=== PATIENT | female | born 1960 | race Caucasian/White ===

== ENCOUNTER 2018-04-06 23:49 | Inpatient (IN) | payer OTHER ==
[~2018-04-06] VITALS: Ht 170.2 cm; Wt 88.5 kg
--- NOTE | 2018-04-06 23:57 | ED SYNCOPE COMPLAINT ---
History of Present Illness General Chief Complaint: Syncope and Near-Syncope Stated Complaint: PT C/O SYNCOPAL EPISODE "PASSED OUT" Vital Signs & Intake/Output Vital Signs & Intake/Output Vital Signs Date Time Temp Pulse Resp B/P B/P Pulse O2 O2 Flow FiO2 Mean Ox Delivery Rate 04/07 0012 Room Air 04/07 0006 98.0 56 20 152/87 100 Room Air Room Air Allergies Coded Allergies: No Known Allergies (04/07/18) Past History Travel History Traveled to [place] past 21 day No Psychosocial History What is your primary language Kiswahili Progress Plan of Care: Orders Procedure Date/time Status CT HEAD WO IV CONTRAST 04/[address] CERV SPINE WO IV CONTRAST 04/06 2357 Active XRY-PORTABLE CHEST XRAY 04/06 2353 Active Telemetry/Demonstrator Sales 04/06 2353 Active TROPONIN LEVEL 04/06 2353 Active COMPREHENSIVE METABOLIC PANEL 04/06 2353 Active CBC WITHOUT DIFFERENTIAL 04/06 2353 Active EKG 04/06 235 Active Initial ED EKG: sinus pause Departure Departure Disposition: STILL A PATIENT Condition: Stable Clinical Impression Primary Impression: Syncope Qualifiers: Syncope type: unspecified Qualified Code: R55 - Syncope and collapse Referrals: Amara GREENBERG,Tala (PCP/Family) Departure Forms: Customer Survey General Discharge Information
--- NOTE | 2018-04-07 00:06 | ED SYNCOPE COMPLAINT ---
History of Present Illness General Chief Complaint: Syncope and Near-Syncope Stated Complaint: PT C/O SYNCOPAL EPISODE "PASSED OUT" Source: patient Exam Limitations: no limitations Vital Signs & Intake/Output Vital Signs & Intake/Output Vital Signs Date Time Temp Pulse Resp B/P B/P Pulse O2 O2 Flow FiO2 Mean Ox Delivery Rate 04/07 0012 Room Air 04/07 0006 98.0 56 20 152/87 100 Room Air Room Air Allergies Coded Allergies: No Known Allergies (04/07/18) Triage Nurses Notes Reviewed? yes Timing: single episode today Precipitating Factors: PALPITATIONS Context: WALKING UP STAIRS PALPITATIONS PASSED OUT Episode Description: Walking upstairs developed palpitations woke up on the ground Loss of Consciousness: brief (seconds) LMP (ages 10-50): unknown : No Patient currently breastfeeds: No HPI: 57-year-old female with no past medical history presents for evaluation of a syncopal episode. Patient states that she was in her usual state of health when she was walking upstairs she suddenly developed palpitations and then had a syncopal episode where she woke up on the ground. States that she did hit her neck on the ground and has some neck pain but denies any head strike. She is unsure exactly what happened when she fell. She states that her found her in a "weird position". She denies any chest pain or shortness of breath no dizziness or lightheadedness. She states that she had a similar spell A year ago. (Anil Light) Past History Travel History Traveled to [place] past 21 day No Medical History Any Pertinent Medical History? see below for history Surgical History Surgical History: non-contributory Psychosocial History What is your primary language German Family History Hx Contributory? No (Anil Light) Review of Systems Review of Systems Constitutional: Reports: no symptoms. EENTM: Reports: no symptoms. Respiratory: Reports: no symptoms. Cardiovascular: Reports: see HPI, palpitations. GI: Reports: no symptoms. Genitourinary: Reports: no symptoms. Musculoskeletal: Reports: no symptoms. Skin: Reports: no symptoms. Neurological/Psychological: Reports: no symptoms. All Other Systems: Reviewed and Negative (Anil Light) Physical Exam Physical Exam General Appearance: well developed/nourished, no apparent distress, alert, awake Head: atraumatic, normal appearance Eyes: Bilateral: normal appearance, PERRL, EOMI. Ears, Nose, Throat: normal pharynx, normal ENT inspection, hearing grossly normal Neck: normal inspection, supple, tender lateral, no midline tenderness, NO BRIOTS, CERVICAL PARASPINAL MUSCLES TO PALPATION BILATERALLY NO MIDLINE TENDERNESS NO STEP-OFFS OR DEFORMITIES Respiratory: normal breath sounds, chest non-tender, no respiratory distress, lungs clear Cardiovascular: regular rate/rhythm, normal peripheral pulses, systolic murmur Gastrointestinal: normal bowel sounds, soft, non-tender, no organomegaly Back: normal inspection, normal range of motion Extremities: normal inspection, normal range of motion, no edema Psychiatric: awake, alert, oriented x 3 Cranial Nerves: normal hearing, normal speech, PERRL Coordination/Gait: normal finger to nose, normal gait Motor/Sensory: no motor/sensory deficits Skin: intact, normal color, warm/dry Lymphatic: no anterior cervical anel Core Measures ACS in differential dx? No CVA/TIA Diagnosis: No Sepsis Present: No Sepsis Focused Exam Completed? No (Adrian BORREGO,Anil) Progress Differential Diagnosis: AMI, aortic dissection, aortic valve, drug induced syncope, orthostatic syncope, other valvular disease, pulmonary embolus, seizure , sick sinus syndrome, subarachnoid hem., TIA/CVA, vasodepressor syncope, ventricular tach/fib Plan of Care: Orders Procedure Date/time Status Nothing by Mouth 04/07 B Active Patient Data 04/07 207 Active Saline Lock 04/07 204 Active ED Holding Orders 04/07 204 Active Admit to inpatient 04/07 204 Active Vital Signs 04/07 204 Active Code Status 04/07 0204 Active Add-on Test (ER Only) 04/07 0043 Active Intake & Output 04/07 0012 Active TSH REFLEX 04/07 7 Active TOTAL TRIODOTHYROXINE 04/07 7 Active PARTIAL THROMBOPLASTIN TIME 04/07 7 Complete PROTHROMBIN TIME 04/07 7 Complete MAGNESIUM 04/07 7 Active FREE T4 04/07 7 Active Telemetry/Turbine Operator 04/06 2353 Active TROPONIN LEVEL 04/06 2353 Active COMPREHENSIVE METABOLIC PANEL 04/06 2353 Active CBC WITHOUT DIFFERENTIAL 04/06 2353 Complete EKG 04/06 2352 Active Laboratory Tests 04/07/ 0007: Anion Gap 13, Estimated GFR > 60, BUN/Creatinine Ratio 18.6, Glucose 96, Calcium 9.6, Magnesium 1.9, Total Bilirubin 0.5, AST 35, ALT 33, Alkaline Phosphatase 50 , Troponin I < 0.01, Total Protein 7.1, Albumin 4.5, Globulin 2.6, Albumin/ Globulin Ratio 1.7, Free T4 1.02, Total T3 Pending, TSH &T3 &Free T4 Intrp 4.960 H, PT 11.0, INR 1.01, APTT 28, CBC w Diff NO MAN DIFF REQ, RBC 4.79, MCV 93.0, MCH 32.3 H, MCHC 34.7, RDW 13.4, MPV 9.6, Gran % 45.7, Lymphocytes % 46.7, Monocytes % 5.0, Eosinophils % 2.0, Basophils % 0.6, Absolute Granulocytes 2.7, Absolute Lymphocytes 2.7, Absolute Monocytes 0.3, Absolute Eosinophils 0.1, Absolute Basophils 0 PT IS HERE AFTER A syncopal episode. She was walking up the stairs when she developed palpitations and had a syncopal episode. Patient is unsure if she hit her head does report some neck pain. No chest pain or shortness of breath. On her initial EKG she shows a sinus pASUSE sinus arrest with atrial escape rhythm. SHE WILL REQUIRE ADMISSION. LABS CHEST X-RAY HEAD/CERVICAL SPINE CT ORDERED. PT SIGNED OUT TO DR PENALOZA PENDING ADMISSION/LABS Initial ED EKG: SINUS PAUSE/SINUS ARREST WITH ATRIAL ESCAPE Prior EKG: changed Hand-Off Endorsed To: Ca GREENBERG,Antolin eLy Endorsed Time: 0100 Pending: CT, labs (Anil Light) Diagnostic Imaging: Viewed by Me: Radiology Read, CT Scan. Discussed w/RAD: Radiology Read, CT Scan. Radiology Impression: PATIENT: GALLO DALEY PRESENT AGE: 57 PATIENT ACCOUNT NO: [id number] : 58 LOCATION: [facility] ORDERING PHYSICIAN: Anil BORREGO SERVICE DATE: 04/06/18 EXAM TYPE: CAT - CT CERV SPINE WO IV CONTRAST; CT HEAD WO IV CONTRAST EXAMINATIONS: CT HEAD WITHOUT CONTRAST AND CT CERVICAL SPINE WITHOUT CONTRAST CLINICAL INFORMATION: Trauma. Syncope. Pain. COMPARISON: None. TECHNIQUE: Contiguous helical images of the brain were obtained without IV contrast. Contiguous helical images of the cervical spine were obtained without IV contrast. Multiplanar reconstructions were performed. DLP: 617 mGy-cm. FINDINGS: There are no pathologic extra-axial fluid collections. The lateral, third, fourth ventricles are nondilated and concordant with the appearance of the sulci. There is no evidence for acute intraparenchymal hemorrhage or infarct. There is neither mass nor mass effect. There is no shift of midline structures. The paranasal sinuses and mastoid air cells are clear. There are no osseous lesions. There is a circular radiopaque foreign body within the region of the lateral right orbit. This appears to pass through the bone and is likely iatrogenic. There is a nondisplaced incomplete fracture through the right C7 superior facet. There is also a nondisplaced fracture through the right inferior facet of C6. As well, there is a fracture through the posterior lamina of C6 just proximal to the spinous process. The cervical vertebra are in normal alignment. Disc heights and vertebral heights are well-preserved. There is no prevertebral soft tissue swelling. There is no cervical lymphadenopathy. The visualized lung apices are clear. IMPRESSION: No evidence for acute intracranial injury. Right-sided C6 and C7 articular facet fractures as stated above as well as a fracture through the posterior medial lamina of C6 just proximal to the spinous process. The aforementioned was communicated to Dr. Penaloza at 0121 hours. DICTATED BY: Jorgito Weathers MD DATE /TIME DICTATED:04/07/18107 HEAD TELLER:ARGENIS DATE/TIME TRANSCRIBED: 04/07/18107 CONFIDENTIAL, DO NOT COPY WITHOUT APPROPRIATE AUTHORIZATION. < Electronically signed in Other Vendor System> SIGNED BY: Jorgito Weathers MD 04/07/18 0124 (Ca GREENBERG,Antolin Ley) Departure Departure Disposition: STILL A PATIENT Condition: Stable Referrals: Amara GREENBERG,Tala (PCP/Family) Departure Forms: Customer Survey General Discharge Information (Anil Light) Departure Clinical Impression Primary Impression: Sinus pause Secondary Impressions: Cervical spine fracture Syncope Qualifiers: Syncope type: unspecified Qualified Code: R55 - Syncope and collapse Comments 04/07/18, 2am... discussed with dr. kang (neurosurgery)... pt merits hard collar and conservative management, no need for surgery... she will follow up with neurosurgeon as outpatient. pt placed in hard collar. call placed to careers counsellor. Admission Note Spoke With: Gustabo Wells MD Documentation of Exam: Documentation of any treatments & extenuating circumstances including Concerns Regarding Discharge (functional status, medication knowledge or non-compliance, living conditions, etc.) that warrant an admission rather than observation: pt with significant sinus pause, resulting in syncope... merits serial trops/ monitoring, cards eval in AM. also, pt with c-spine fx... discussed with neurosurgery... pt merits hard collar , no need for surgery. (Ca GREENBERG,Antolin Ley) Critical Care Note Critical Care Note Critical Care Time: 30-74 min (Ca GREENBERG,Antolin Ley)
[2018-04-07 00:49] LABS: ABSOLUTE BASOPHIL COUNT 0 /CUMM (0.0-0.2); ABSOLUTE EOSINOPHIL COUNT 0.1 /CUMM (0.0-0.7); ABSOLUTE GRANULOCYTE CT 2.7 /CUMM (1.4-6.5); ABSOLUTE LYMPH COUNT 2.7 /CUMM (1.2-3.4); ABSOLUTE MONOCYTE COUNT 0.3 /CUMM (0.10-0.60); BASOPHIL % 0.6 % (0.0-2.0); GRANULOCYTE % 45.7 % (42.2-75.2); HEMATOCRIT 44.5 % (37-47); MEAN CORPUSCULAR HGB 32.3 PG (27.0-31.0); MEAN CORPUSCULAR HGB CONC 34.7 G/DL (33.0-37.0); MEAN PLATELET VOLUME 9.6 FL (7.4-10.4); PLATELET COUNT 157 /CUMM (130-400); RBC DISTRIBUTION WIDTH 13.4 % (11.5-14.5); RED BLOOD CELL CT 4.79 /CUMM (4.20-5.40); WHITE BLOOD CELL COUNT 5.9 /CUMM (4.8-10.8)
--- NOTE | 2018-04-07 01:12 | RADIOLOGY REPORT ---
EXAMINATION: CHEST 1 VIEW CLINICAL INFORMATION: Syncope. Pneumonia. COMPARISON: None. TECHNIQUE: An AP view of the chest is provided. FINDINGS: The cardiac silhouette is not enlarged. The mediastinal and hilar contours are unremarkable. There are neither pleural effusions nor pneumothoraces. There are no consolidations. The osseous structures are unremarkable. IMPRESSION: No evidence for acute disease.
--- NOTE | 2018-04-07 01:24 | CT SCAN REPORT ---
EXAMINATIONS: CT HEAD WITHOUT CONTRAST AND CT CERVICAL SPINE WITHOUT CONTRAST CLINICAL INFORMATION: Trauma. Syncope. Pain. COMPARISON: None. TECHNIQUE: Contiguous helical images of the brain were obtained without IV contrast. Contiguous helical images of the cervical spine were obtained without IV contrast. Multiplanar reconstructions were performed. DLP: 617 mGy-cm. FINDINGS: There are no pathologic extra-axial fluid collections. The lateral, third, fourth ventricles are nondilated and concordant with the appearance of the sulci. There is no evidence for acute intraparenchymal hemorrhage or infarct. There is neither mass nor mass effect. There is no shift of midline structures. The paranasal sinuses and mastoid air cells are clear. There are no osseous lesions. There is a circular radiopaque foreign body within the region of the lateral right orbit. This appears to pass through the bone and is likely iatrogenic. There is a nondisplaced incomplete fracture through the right C7 superior facet. There is also a nondisplaced fracture through the right inferior facet of C6. As well, there is a fracture through the posterior lamina of C6 just proximal to the spinous process. The cervical vertebra are in normal alignment. Disc heights and vertebral heights are well-preserved. There is no prevertebral soft tissue swelling. There is no cervical lymphadenopathy. The visualized lung apices are clear. IMPRESSION: No evidence for acute intracranial injury. Right-sided C6 and C7 articular facet fractures as stated above as well as a fracture through the posterior medial lamina of C6 just proximal to the spinous process. The aforementioned was communicated to Dr. Penaloza at 0121 hours.
[2018-04-07 01:34] LABS: PTT 28 SEC (25-37)
--- NOTE | 2018-04-07 02:15 | History & Physical ---
Delgado Burt 04/07/18 0213: General Information and HPI History of Present Illness: 68-year-old female with past medical history of mitral valve prolapse, osteoporosis came to the emergency department with chief complaint of syncope, according to the patient she was in her usual state of health last night when she came downstairs from her room for drinking water in her way back she started having racing heart, diaphoresis as well as headache than she got unconscious. The patient was found on the floor by her . He has same episode 2 years ago. She denies any jerking movement, bowel bladder incontinence, tongue bite, chest pain nausea or vomiting the patient is currently under investigation for syncope by her primary physician. She ordered a Holter monitoring and echo, reports are awaited. Patient having shortness but on strenous exercise like cycling for at least 1 hour daily she is not feeling any tiredness, dizziness or any kind of weakness. During episode of syncope she felt on the floor and there is C6, C7 cervical vertebra fracture. Allergies/Medications Allergies: Uncoded Allergies: ramirez butter (ITCHING, BURNING RASH 04/07/18) Home Med list Cholecalciferol (Vitamin D3) (Vitamin D) (Unknown Strength) TABLET (Unknown Dose) PO DAILY SUPPLEMENT (Reported) Fluticasone Propionate (Flonase Allergy Relief) 50 MCG/ACTUATION SPRAY.SUSP 1 SPRAY OSEAS PRN ALLERGIES (Reported) Past History Travel History Traveled to [place] past 21 day No Medical History Neurological: NONE EENT: NONE Cardiovascular: NONE Respiratory: NONE Gastrointestinal: NONE Hepatic: NONE Renal: NONE Musculoskeletal: NONE Psychiatric: NONE Endocrine: NONE Blood Disorders: NONE Cancer(s): NONE 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 The mediastinal and hilar contours are unremarkable. There are neither pleural effusions nor pneumothoraces. There are no consolidations. The osseous structures are unremarkable. Other Results IMPRESSION: No evidence for acute intracranial injury. Right-sided C6 and C7 articular facet fractures as stated above as well as a fracture through the posterior medial lamina of C6 just proximal to the spinous process. Assessment/Plan Assessment: Assessment and plan; #1 syncope; the patient had a syncopal episode this may be secondary due to the arterial fibrillations or tachycardia or any kind of arrhythmias which may be most probably provoked by mitral valve prolapse. I have called escalator attendant office for cardiac review today early in the morning. Also advise EKG and serial troponin level. * Vitals every shift 2D echo. * Patient is full code. * There is fracture of C6 and C7, neurosurgery was suggested and advised her neck collar for 4-6 weeks. * Diet-regular diet. * DVT prophylaxis-advised heparin but patient denied heparin. Core Measures/Misc (05/28) Acute Coronary Syndrome ACS Diagnosis: No Congestive Heart Failure Congestive Heart Failure Diagnosis No Cerebrovascular Accident CVA/TIA Diagnosis: No Sepsis (View protocol) Sepsis Present: No If YES complete Sepsis Event Note If YES complete Sepsis Event Note Resident Review Statement Resident Statement: discussed with summer internship Albina Garcia MD 04/07/18 0215: Assessment/Plan As Ranked By This Provider Problem List: 1. Syncope Qualifiers Syncope type: unspecified Qualified Code: R55 - Syncope and collapse Core Measures/Misc (05/28) Acute Coronary Syndrome ACS Diagnosis: No Congestive Heart Failure Congestive Heart Failure Diagnosis No Cerebrovascular Accident CVA/TIA Diagnosis: No VTE (View Protocol) VTE Risk Factors Age>40 No Mechanical VTE Prophylaxis d/t Other No VTE Pharm Prophylaxis d/t Other Sepsis (View protocol) Sepsis Present: No If YES complete Sepsis Event Note If YES complete Sepsis Event Note Resident Review Statement Other Findings: 58-year-old with history of mitral valve prolapse came to [facility] with an episode of syncopE. According the patient she was in usual state of health until last night, at around 11 PM she got down to get water in order way back to her bedroom she felt palpitation fortified diaphoresis and then found lying on the floor by her . Patient got similar kind of episode 2 years ago. Patient is currently being evaluated for pauses by her primary care physician. Patient got Holter monitoring done recently. She also got an echocardiogram. She does not know the results of both. Interestingly patient said that whenever she does cardio workout she feels better and the heart rate is high. Otherwise no chest pain, dizziness, weakness, abdominal pain, nausea, vomiting, headache. Patient takes multivitamins. admission vitals Temperature 98, pulse rate 56, respiratory rate 20, blood pressure 152/87 Labs WBC 5.9, hemoglobin 15.4, platelet count 157, INR 1.01, troponin 0 0.01 ED imaging Chest x-ray No evidence for acute disease. Cervical spine CT/head CT No evidence for acute intracranial injury. Right-sided C6 and C7 articular facet fractures as stated above as well as a fracture through the posterior medial lamina of C6 just proximal to the spinous process ED treatment IV Tylenol On examination patient lying with her hard collar on her neck. She complains of neck pain a 5 x 10 in severity CVS-S1-S2 irregular RS-normal vesicular breath sounds Abdomen-soft INVENTORY CONTROL/SHIPPING RECEIVING-3-12 cranial nerves intact Assessment and plan 1. Syncope-this can be secondary due to atrial fibrillation-tachybradycardia syndrome. Cardiology consult Serial troponin and EKG Vitals every shift 2D echocardiogram Code-full code C6-C7 fracture-ED course neurosurgery was suggested heart collar for 4-6 weeks. Diet-regular diet DVT prophylaxis-heparin subcu Priscilla GREENBERGOsceola 04/07/18 9912: General Information and HPI Statement: I have seen and personally examined GALLO DALEY and documented this H&P. The patient is a 57 year old F who presented with a patient stated chief complaint of [syncope]. Source of Information: patient Exam Limitations: no limitations Past History Medical History EENT: cataracts Cardiovascular: mitral prolapse Endocrine: osteoporosis Past Family/Social History Psychosocial History Where do you live? Home Who Do You Live With? 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 Exam & Diagnostic Data Last 24 Hrs of Vital Signs/I&O Vital Signs Date Time Temp Pulse Resp B/P B/P Pulse O2 O2 Flow FiO2 Mean Ox Delivery Rate 04/07 0345 98.1 64 18 141/69 98 Room Air 04/07 0012 Room Air 04/07 0006 98.0 56 20 152/87 100 Room Air Room Air Intake & Output 04/07 0800 04/07 0000 04/06 1600 Intake Total 0 Output Total Balance 0 Intake, Oral 0 Patient 133 lb Weight Physical Exam General Appearance Alert, Oriented X3, Cooperative, No Acute Distress Skin No Rashes, No Breakdown HEENT Atraumatic, PERRLA, EOMI Neck Supple, in a stiff collar Lymphatic Axillary nl, Cervical nl Cardiovascular Regular Rate, mid systolic click Lungs Clear to Auscultation, Normal Air Movement Abdomen Normal Bowel Sounds, Soft, No Tenderness Last 24 Hrs of Labs/James: Laboratory Tests 04/07/18 0007: Anion Gap 13, Estimated GFR > 60, BUN/Creatinine Ratio 18.6, Glucose 96, Calcium 9.6, Magnesium 1.9, Total Bilirubin 0.5, AST 35, ALT 33, Alkaline Phosphatase 50 , Troponin I < 0.01, Total Protein 7.1, Albumin 4.5, Globulin 2.6, Albumin/ Globulin Ratio 1.7, Free T4 1.02, Total T3 1.08, TSH &T3 &Free T4 Intrp 4.960 H , PT 11.0, INR 1.01, APTT 28, CBC w Diff NO MAN DIFF REQ, RBC 4.79, MCV 93.0, MCH 32.3 H, MCHC 34.7, RDW 13.4, MPV 9.6, Gran % 45.7, Lymphocytes % 46.7, Monocytes % 5.0, Eosinophils % 2.0, Basophils % 0.6, Absolute Granulocytes 2.7, Absolute Lymphocytes 2.7, Absolute Monocytes 0.3, Absolute Eosinophils 0.1, Absolute Basophils 0 Diagnostic Data EKG Results Sinus pause with atrial escape Core Measures/Misc (05/28) Sepsis (View protocol) If YES complete Sepsis Event Note If YES complete Sepsis Event Note Attending MD Review Statement Attending Statement Attending MD Statement: examined this patient, discuss w/resident/PA/DANCE TEACHER, agreed w/resident/PA/DANCE TEACHER, amended to note Attending Assessment/Plan: This patient is a 58-year-old female with a significant past medical history for mitral valve prolapse who came to [facility] with an episode of syncope. The patient was in her usual state of health until the evening prior to admission, at around 11 PM she got down to get water in on her way back to her bedroom she felt palpitation, diaphoresis and then was found lying on the floor by her . The patient has had several similar episodes. She is currently being evaluated for pauses by her primary care physician with a Holter monitoring performed (awaiting results) and an echocardiogram (results are not available at this visit). While in the emergency department her vitals were stable, troponin was negative, chest x-ray showed no acute disease however a cervical CT spine demonstrated a right-sided C6-C7 articular facet fracture. Neurosurgery was contacted and recommended a hard collar for 4-6 weeks. Most importantly her EKG demonstrated a significant sinus pause with atrial escape. The patient will need to be evaluated by cardiology in the morning for possible pacemaker placement. EKG Results Sinus pause with atrial escape Core Measures/Misc (05/28) Sepsis (View protocol) If YES complete Sepsis Event Note If YES complete Sepsis Event Note Attending MD Review Statement Attending Statement Attending MD Statement: examined this patient, discuss w/resident/PA/DANCE TEACHER, agreed w/resident/PA/DANCE TEACHER, amended to note Attending Assessment/Plan: This patient is a 58-year-old female with a significant past medical history for mitral valve prolapse who came to [facility] with an episode of syncope. The patient was in her usual state of health until the evening prior to admission, at around 11 PM she got down to get water in on her way back to her bedroom she felt palpitation, diaphoresis and then was found lying on the floor by her . The patient has had several similar episodes. She is currently being evaluated for pauses by her primary care physician with a Holter monitoring performed (awaiting results) and an echocardiogram (results are not available at this visit). While in the emergency department her vitals were stable, troponin was negative, chest x-ray showed no acute disease however a cervical CT spine demonstrated a right-sided C6-C7 articular facet fracture. Neurosurgery was contacted and recommended a hard collar for 4-6 weeks. Most importantly her EKG demonstrated a significant sinus pause with atrial escape. The patient will need to be evaluated by cardiology in the morning for possible pacemaker placement.
[2018-04-07] MEDS ORDERED: FLONASE ALLERG9.9 ML NAS (09:46)
[2018-04-07] MEDS ORDERED: VITAMIN D2000 UNI1 PO (09:46)
--- NOTE | 2018-04-07 10:38 | Cons- Cardiology ---
General Information and HPI Consulting Request Date of Consult: 04/07/18 Requested By: Gustabo Wells MD Reason for Consult: Syncope Source of Information: patient History of Present Illness: This is a pleasant 57-year-old female with a past medical history of mitral valve prolapse and osteoporosis who presents to [facility] with a chief complaint of syncope. The patient was in her usual state of health when she was walking get some water and developed acute palpitations along with diaphoresis and then had a short episode of loss of consciousness; she was told by her that lasted approximately 1 minute. No reported bowel or bladder incontinence. No witnessed seizure activity. She has had multiple episodes of intermittent palpitations with no obvious exacerbating or alleviating factors; she tells me she recently underwent an outpatient echocardiogram and Holter monitor and was going to be referred to a package delivery driver. When she awoke after this episode she had significant neck pain and was found to have cervical fracture. She is now in a hard cervical collar. She denies any significant exertional symptoms; no chest pain, slurring of speech, orthopnea, or paroxysmal nocturnal dyspnea. She is quite active at baseline. Despite having multiple episodes of intermittent palpitations that she tells me she is only syncopized once in the past approximately 2 years ago. Allergies/Medications Allergies: Uncoded Allergies: ashley butter (ITCHING, BURNING RASH 04/07/18) Home Med List: Cholecalciferol (Vitamin D3) (Vitamin D) (Unknown Strength) TABLET (Unknown Dose) PO DAILY SUPPLEMENT (Reported) Fluticasone Propionate (Flonase Allergy Relief) 50 MCG/ACTUATION SPRAY.SUSP 1 SPRAY OSEAS PRN ALLERGIES (Reported) Current Medications: Current Medications Sig/Gilma Start time Last Medication Dose Route Stop Time Status Admin Acetaminophen 0 .STK-MED ONE 04/07 0611 DC PO Acetaminophen 650 MG Q6P PRN 04/07 06 AC 04/07 PO 0615 Acetaminophen 1,000 MG ONCE ONE 04/07 0145 DC 04/07 N/A 1 UNIT IV 04/07 0159 0139 Acetaminophen 0 .STK-MED ONE 04/07 0138 DC IV Heparin Sodium 0 .STK-MED ONE 04/07 0605 DC (Porcine) .ROUTE Heparin Sodium 5,000 UNIT Q8 04/07 06 AC (Porcine) SC Morphine Sulfate 2 MG Q4P PRN 07/28 0600 AC IV Oxycodone/ 1 TAB Q6P PRN 04/07 0600 AC Acetaminophen PO Review of Systems Review of Systems: Review of systems as per HPI. The remainder of a 10 point review of systems was reviewed and was otherwise negative. 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 Home Who Do You Live With? 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 Alert. Cervical collar in place Eyes: No obvious scleral icterus. HEENT: No jugular venous distention or abnormal jugular venous pulsations. Cardiovascular: Normal intensity S1/S2. PMI not grossly displaced. Respiratory: Lungs clear to auscultation bilaterally. Abdomen: Soft, nontender with no guarding or rebound tenderness. Musculoskeletal: No clubbing or cyanosis noted Skin: warm Neurologic: No gross focal deficits noted. Lymph: No gross lymphadenopathy. Labs/James Results: Laboratory Tests 04/07 04/07 0725 0007 Chemistry Sodium (137 - 145 mmol/L) 140 Potassium (3.5 - 5.1 mmol/L) 3.9 Chloride (98 - 107 mmol/L) 103 Carbon Dioxide (22 - 30 mmol/L) 25 Anion Gap (5 - 16) 13 BUN (7 - 17 mg/dL) 13 Creatinine (0.5 - 1.0 mg/dL) 0.7 Estimated GFR (>60 ml/min) > 60 BUN/Creatinine Ratio (7 - 25 %) 18.6 Glucose (65 - 99 mg/dL) 96 Calcium (8.4 - 10.2 mg/dL) 9.6 Magnesium (1.6 - 2.3 mg/dL) 1.9 Total Bilirubin (0.2 - 1.3 mg/dL) 0.5 AST (14 - 36 U/L) 35 ALT (9 - 52 U/L) 33 Alkaline Phosphatase (<127 U/L) 50 Troponin I (< 0.11 ng/ml) < 0.01 < 0.01 Total Protein (6.3 - 8.2 g/dL) 7.1 Albumin (3.5 - 5.0 g/dL) 4.5 Globulin (1.9 - 4.2 gm/dL) 2.6 Albumin/Globulin Ratio (1.1 - 2.2 %) 1.7 Free T4 (0.64 - 1.79 ng/dL) 1.02 Total T3 (0.97 - 1.69 ng/mL) 1.08 TSH &T3 &Free T4 Intrp (0.270 - 4.20 uIU/mL) 4.960 H Coagulation PT (9.4 - 12.5 SEC) 11.0 INR (0.90 - 1.19) 1.01 APTT (25 - 37 SEC) 28 Hematology CBC w Diff NO MAN DIFF REQ WBC (4.8 - 10.8 /CUMM) 5.9 RBC (4.20 - 5.40 /CUMM) 4.79 Hgb (12.0 - 16.0 G/DL) 15.4 Hct (37 - 47 %) 44.5 MCV (81.0 - 99.0 FL) 93.0 MCH (27.0 - 31.0 PG) 32.3 H MCHC (33.0 - 37.0 G/DL) 34.7 RDW (11.5 - 14.5 %) 13.4 Plt Count (130 - 400 /CUMM) 157 MPV (7.4 - 10.4 FL) 9.6 Gran % (42.2 - 75.2 %) 45.7 Lymphocytes % (20.5 - 51.1 %) 46.7 Monocytes % (1.7 - 9.3 %) 5.0 Eosinophils % (0 - 5 %) 2.0 Basophils % (0.0 - 2.0 %) 0.6 Absolute Granulocytes (1.4 - 6.5 /CUMM) 2.7 Absolute Lymphocytes (1.2 - 3.4 /CUMM) 2.7 Absolute Monocytes (0.10 - 0.60 /CUMM) 0.3 Absolute Eosinophils (0.0 - 0.7 /CUMM) 0.1 Absolute Basophils (0.0 - 0.2 /CUMM) 0 Diagnostic Data EKG Results Tracing was personally reviewed and shows sinus rhythm with sinus pause and a narrow QRS complex CXR Results No evidence for acute disease. Other Results Telemetry tracings were personally reviewed and shows sinus rhythm CT No evidence for acute intracranial injury. Right-sided C6 and C7 articular facet fractures as stated above as well as a fracture through the posterior medial lamina of C6 just proximal to the spinous process. Assessment/Plan Assessment/Plan 1. Recurrent palpitations 2. Recurrent syncope 3. Cervical fracture 4. Reported history of mitral prolapse 5. Sinus pause on EKG The patient's recurrent symptoms are suspicious for a cardiac etiology; while she did have a sinus pause on EKG, telemetry thus far has been unrevealing. I am not entirely sure that her symptoms are due to bradycardia arrhythmia as they seem to start with acute onset palpitations and may in fact be due to a tachyarrhythmia; will need to obtain the results of her recent outpatient Holter monitor and echocardiogram. Management of her cervical fracture per neurosurgery. I suspect she may be a candidate for EP study. She should remain on continuous telemetry without interruption. Ariel Garza MD [facility] Consult Acknowledgment - Thank you for your consult request.
[2018-04-07 18:09] VITALS: BP 122/82
[2018-04-07 22:30] VITALS: BP 122/60
[2018-04-08 06:59] VITALS: BP 126/72
--- NOTE | 2018-04-08 09:49 | PN- Housestaff ---
Subjective Follow-up For: syncope Right-sided C6 and C7 articular facet fractures Subjective: No acute overnight events. no complaints. Review of Systems Constitutional: Denies: chills, malaise, weakness. EENTM: Reports: no symptoms. Cardiovascular: Reports: no symptoms. Respiratory: Denies: short of breath. Gastrointestinal: Reports: no symptoms. Genitourinary: Reports: no symptoms. Musculoskeletal: Reports: no symptoms. Objective Last 24 Hrs of Vital Signs/I&O Vital Signs Date Time Temp Pulse Resp B/P B/P Pulse O2 O2 Flow FiO2 Mean Ox Delivery Rate 04/08 1410 98.5 62 18 118/68 97 Room Air 04/08 0659 98.3 54 20 126/72 97 Room Air 04/07 2230 98.0 66 18 122/60 99 Room Air Intake & Output 04/08 1600 04/08 0800 04/08 0000 Intake Total 800 480 480 Output Total Balance 800 480 480 Intake, Oral 800 480 480 Physical Exam General Appearance: Alert, Oriented X3, Cooperative Skin: No Significant Lesion HEENT: Atraumatic, PERRLA, EOMI Neck: Supple, on cervical collar Cardiovascular: Regular Rate, Normal S1, Normal S2, No Murmurs Lungs: Normal Air Movement Abdomen: Soft Extremities: No Clubbing Assessment/Plan Assessment: ASSESSMENT: This is a 58-year-old with PMH of mitral valve prolapse came to [facility] with CC palpitations, diaphoresis and syncope. A Cervical spine CT/head CT in ED showed Right-sided C6 and C7 articular facet fractures as well as a fracture through the posterior medial lamina of C6 just proximal to the spinous process PLAN: 1. Syncope: Given palpitations, there is c/o cardiac etiology of syncope. Overnight tele events showed hr 54-55. * Appreciate Cardiology consult * Serial troponin and EKG x3 nml * Vitals every shift * 2D echocardiogram * TSH 4.96 * Con't tele monitor 2. C6-C7 fracture * neurosurgery was suggested heart collar for 4-6 weeks. FC Diet-regular diet DVT prophylaxis-heparin subcu Problem List: 1. Cervical spine fracture 2. Syncope Pain Ratin Pain Location: NONE Pain Goal: Remain pain free Pain Plan: NONE Tomorrow's Labs & Rationales: CBC BEP
--- NOTE | 2018-04-08 12:01 | PN- Cardiology ---
Subjective Subjective: No chest pain or dyspnea. She has had some intermittent "fluttering" sensation while here in the hospital which are similar to her previously described episodes. No recurrent syncope while here in the hospital. Objective Vital Signs and I&Os Vital Signs Date Time Temp Pulse Resp B/P B/P Pulse O2 O2 Flow FiO2 Mean Ox Delivery Rate 04/08 0659 98.3 54 20 126/72 97 Room Air 04/07 2230 98.0 66 18 122/60 99 Room Air 04/07 1809 97.9 56 18 122/82 99 Room Air 04/07 1501 98.2 65 18 137/77 98 Room Air Room Air Intake & Output 04/08 1600 04/08 0804/08 0000 04/07 1600 04/07 0800 04/07 0000 Intake Total 480 480 0 Output Total Balance 480 480 0 Intake, Oral 480 480 0 Patient 133 lb 133 lb Weight Weight Reported by Patient Measurement Method Physical Exam: General: no apparent distress. Alert. Cervical collar in place Eyes: No obvious scleral icterus. HEENT: No jugular venous distention or abnormal jugular venous pulsations. Cardiovascular: Normal intensity S1/S2. PMI not grossly displaced. Respiratory: Lungs clear to auscultation bilaterally. Abdomen: Soft, nontender with no guarding or rebound tenderness. Musculoskeletal: No clubbing or cyanosis noted Skin: warm Neurologic: No gross focal deficits noted. Lymph: No gross lymphadenopathy. Current Medications: Current Medications Sig/Gilma Start time Last Medication Dose Route Stop Time Status Admin Acetaminophen 0 .STK-MED ONE 04/07 1233 DC PO Acetaminophen 650 MG Q6P PRN 04/07 06 AC 04/08 PO 0527 Heparin Sodium 5,000 UNIT Q8 04/07 0600 AC 04/08 (Porcine) SC 0527 Ketorolac 15 MG ONCE ONE 04/08 1130 DC 04/08 Tromethamine IV 04/08 1131 1147 Ketorolac 15 MG .STK-MED ONE 04/07 2311 DC Tromethamine IM 04/07 231 Ketorolac 15 MG ONCE ONE 04/070 DC 04/07 Tromethamine IV 04/07 2231 231 Morphine Sulfate 2 MG Q4P PRN 04/07 06 AC IV Oxycodone/ 1 TAB Q6P PRN 04/07 06 AC Acetaminophen PO Results Last 48 Hrs of Labs/Mics: Laboratory Tests 04/07/18 1214: Troponin I < 0.01 04/07/18 0725: Troponin I < 0.01 04/07/18 0007: Anion Gap 13, Estimated GFR > 60, BUN/Creatinine Ratio 18.6, Glucose 96, Calcium 9.6, Magnesium 1.9, Total Bilirubin 0.5, AST 35, ALT 33, Alkaline Phosphatase 50 , Troponin I < 0.01, Total Protein 7.1, Albumin 4.5, Globulin 2.6, Albumin/ Globulin Ratio 1.7, Free T4 1.02, Total T3 1.08, TSH &T3 &Free T4 Intrp 4.960 H , PT 11.0, INR 1.01, APTT 28, CBC w Diff NO MAN DIFF REQ, RBC 4.79, MCV 93.0, MCH 32.3 H, MCHC 34.7, RDW 13.4, MPV 9.6, Gran % 45.7, Lymphocytes % 46.7, Monocytes % 5.0, Eosinophils % 2.0, Basophils % 0.6, Absolute Granulocytes 2.7, Absolute Lymphocytes 2.7, Absolute Monocytes 0.3, Absolute Eosinophils 0.1, Absolute Basophils 0 Recent Imaging Studies: Telemetry tracings are personally reviewed and shows sinus rhythm and sinus bradycardia with intermittent short sinus pauses Assessment/Plan Assessment/Plan 1. Recurrent palpitations 2. Recurrent syncope 3. Cervical fracture 4. Reported history of mitral prolapse 5. Sinus pause on EKG/telemetry She has had some intermittent "fluttering" sensation while here in the hospital which are similar to her previously described episodes. No recurrent syncope while here in the hospital. No evidence of tachyarrhythmias on telemetry despite her intermittent symptoms. Does continue to have intermittent sinus pauses on telemetry. Obtain the recent outpatient Holter monitor and echocardiogram. Management of her cervical fracture per neurosurgery. She should remain on continuous telemetry without interruption. Would keep her n.p.o. after midnight for possible permanent pacemaker tomorrow. Ariel aGrza MD [facility] Continue telemetry? Yes
[2018-04-08 14:10] VITALS: BP 118/68
[2018-04-08 22:01] VITALS: BP 132/74
--- NOTE | 2018-04-09 07:00 | PN- Housestaff ---
Amanda Haynes 04/09/18 0700: Subjective Follow-up For: Syncope Cervical Neck Fracture Tele-Events Since Last Visit: sb, 58 Review of Systems Constitutional: Denies: see HPI. Objective Last 24 Hrs of Vital Signs/I&O Vital Signs Date Time Temp Pulse Resp B/P B/P Pulse O2 O2 Flow FiO2 Mean Ox Delivery Rate 04/08 2201 97.4 61 18 132/74 97 04/08 1410 98.5 62 18 118/68 97 Room Air Intake & Output 04/09 1600 04/09 0800 04/09 0000 Intake Total 200 Output Total Balance 200 Intake, Oral 200 Physical Exam General Appearance: Alert, Oriented X3, Cooperative Neck: cervical collar applied Cardiovascular: Normal S1, Normal S2, bradycardia Lungs: Clear to Auscultation, Normal Air Movement Abdomen: Normal Bowel Sounds, Soft, No Tenderness Neurological: Normal Speech, Strength at 5/5 X4 Ext, Normal Tone, Sensation Intact Extremities: No Clubbing, No Cyanosis, No Edema Vascular: Normal Pulses, Pulses Symmetrical Current Medications: Current Medications Sig/Gilma Start time Last Medication Dose Route Stop Time Status Admin Acetaminophen 650 MG .STK-MED ONE 04/08 1942 DC PO 04/08 194 Acetaminophen 650 MG Q6P PRN 04/07 06 AC 04/09 PO 0432 Heparin Sodium 5,000 UNIT Q8 04/07 06 AC 04/09 (Porcine) SC 0538 Ketorolac 15 MG ONCE ONE 04/08 1130 DC 04/08 Tromethamine IV 04/08 1131 1147 Morphine Sulfate 2 MG Q4P PRN 04/07 06 AC IV Oxycodone/ 1 TAB Q6P PRN 04/07 06 AC Acetaminophen PO Scopolamine HBr 0 .STK-MED ONE 04/09 1024 DC TOP Last 24 Hrs of Lab/James Results Last 24 Hrs of Labs/Mics: Laboratory Tests 04/09/18 0703: Anion Gap 10, Estimated GFR > 60, BUN/Creatinine Ratio 17.1, CBC w Diff NO MAN DIFF REQ, RBC 5.04, MCV 94.5, MCH 31.8 H, MCHC 33.6, RDW 13.0, MPV 9.7, Gran % 60.8, Lymphocytes % 29.9, Monocytes % 7.0, Eosinophils % 1.7, Basophils % 0.6, Absolute Granulocytes 3.2, Absolute Lymphocytes 1.6, Absolute Monocytes 0.4, Absolute Eosinophils 0.1, Absolute Basophils 0 Orders ECHO Findings: Normal global left ventricular size, wall thickness, systolic function with no obvious regional wall motion abnormalities. Normal left ventricular ejection fraction estimated at 60-65%. Assessment/Plan Assessment: Patient is a 57-year-old female with past medical history of mitral valve prolapse came to [facility] with complaints of chronic palpitations and an episode of syncope at home. Patient claimed to have a short episode of loss consciousness with diaphoresis. Event lasted approximately 1 minute as per . Patient has multiple episodes of intermittent palpitations in the past but no obvious exacerbating or relieving factors. Recently underwent outpatient echo and Holter monitor and it was planned to be referred to a crystal syrup maker. In addition patient found to have cervical fractures of C6 and C7. Patient placed on hard cervical collar in the ER. Problem list: 1. Recurrent palpitations/syncope 2. Cervical fracture 3. Reported history of mitral valve prolapse 4. Sinus pause on EKG Recurrent palpitations or syncope * Patient has had multiple episodes of pauses up to 3 seconds in sinus bradycardia and 30s while on treatment telemetry * Patient n.p.o. today for current pacemaker placement. * Hard collar in place for C6-C7 fracture, neurosurgery consulted proper fitting of cervical, Cervical fracture of C6-C7 * Neurosurgery suggested hard collar for 4-6 weeks * Contacted today for proper fitting of cervical collar CODE STATUS: Full code Diet: Regular diet DVT prophylaxis: Heparin SC Problem List: 1. Syncope 2. Sinus pause 3. Cervical spine fracture Pain Ratin Pain Location: Neck Pain Goal: Pain 4 or less Pain Plan: as per pain pathway Tomorrow's Labs & Rationales: cbc bep DVT/Prophylaxis: mechanical, pharmacological Adri Mena MD 04/09/18 1253: Attending MD Review Statement Attending Statement Attending MD Statement: examined this patient, discuss w/resident/PA/FIRER LOCOMOTIVE CRANE, agreed w/resident/PA/FIRER LOCOMOTIVE CRANE, reviewed EMR data (avail), discussed with nursing, discussed with case mgmt, reviewed images Attending Assessment/Plan: 57-year-old female past medical history of mitral valve prolapse was here with syncope and found to have symptomatic bradycardia with pauses of up to 2-3 seconds. She also has a C6-C7 fracture and has a collar. She is nothing by mouth for pacemaker today and will call a formal neurosurgery consult as the collar doesn't appear to be fitted on right.
--- NOTE | 2018-04-09 07:35 | ECHOCARDIOGRAM REPORT ---
GALLO DALEY Age: 57 : 1960 Gender: F Exam Date: 04/08/2018 10:09 Exam Location: 1 [address] Ht (in): 67 Wt (lb): 133 BSA: 1.69 BP: 126 / 72 Ordering Physician: CARL GREENBERG,INTERVALE Referring Physician: Antwan Garza M.D. Technologist: Amaris Santo [facility] Room Number: [id number] Indications: Palpitations Rhythm: Sinus Technical Quality: fair FINDINGS Left Ventricle Normal global left ventricular size, wall thickness, systolic function with no obvious regional wall motion abnormalities. Normal left ventricular ejection fraction estimated at 60-65%. Right Ventricle Normal right ventricular size and function. Right Atrium Normal right atrial size. Left Atrium Normal left atrial size. Mitral Valve Mitral valve normal in structure and function. Mild mitral regurgitation. Aortic Valve Structurally normal trileaflet aortic valve. Trace to mild aortic regurgitation. Tricuspid Valve Tricuspid valve is normal in structure and function. Trace to mild tricuspid regurgitation. Pulmonic Valve Pulmonic valve not well visualized, grossly normal. Pericardium No pericardial effusion. Great Vessels Normal size aortic root. CONCLUSIONS Normal left and right ventricular systolic function. No significant valvular abnormalities noted. Lei Mena M.D. (Electronically Signed) Final Date: 09 April 2018 07:32 MEASUREMENTS (Male / Female) Normal Values 2D ECHO LV Diastolic Diameter PLAX 3.6 cm 4.2 - 5.9 / 3.9 - 5.3 cm LV Systolic Diameter PLAX 2.5 cm 2.1 - 4.0 cm LV Fractional Shortening PLAX 30.6 % 25 - 46 % LV Ejection Fraction 2D Teich 59.0 % IVS Diastolic Thickness 0.8 cm LVPW Diastolic Thickness 0.9 cm LV Relative Wall Thickness 0.5 RV Internal Dim ED PLAX 2.0 cm 1.9 - 3.8 cm LVOT Diameter 2.0 cm Aortic Root Diameter 2.4 cm LA Systolic Diameter LX 3.0 cm 3.0 - 4.0 / 2.7 - 3.8 cm LA Volume 28.0 cm 18 - 58 / 22 - 52 cm Ascending Aorta Diameter 2.6 cm DOPPLER AV Peak Velocity 113.0 cm/s AV Peak Gradient 5.1 mmHg AV Mean Velocity 75.8 cm/s AV Mean Gradient 3.0 mmHg AV Velocity Time Integral 29.3 cm LVOT Peak Velocity 74.4 cm/s LVOT Peak Gradient 2.2 mmHg LVOT Mean Velocity 48.7 cm/s LVOT Mean Gradient 1.0 mmHg LVOT Velocity Time Integral 20.4 cm LVOT Stroke Volume 64.1 cm AV Area Cont Eq vti 2.2 cm AV Area Cont Eq pk 2.1 cm MV Peak Velocity 113.0 cm/s MV Peak Gradient 5.1 mmHg MV Mean Velocity 48.3 cm/s MV Mean Gradient 1.0 mmHg Mitral E Point Velocity 67.6 cm/s Mitral A Point Velocity 42.0 cm/s Mitral E to A Ratio 1.6 MV PHT Velocity 115.0 cm/s MV Deceleration Martin 479.0 cm/s MV Pressure Half Time 72.0 ms MV Area PHT 3.1 cm MV Deceleration Time 194.0 ms TR Peak Velocity 81.7 cm/s TR Peak Gradient 2.7 mmHg Right Atrial Pressure 5.0 mmHg Pulmonary Artery Systolic Pressure 7.7 mmHg Right Ventricular Systolic Pressure 7.7 mmHg PV Peak Velocity 80.2 cm/s PV Peak Gradient 2.6 mmHg PV Mean Velocity 58.6 cm/s PV Mean Gradient 2.0 mmHg PV Velocity Time Integral 16.7 cm LV E' Lateral Velocity 14.9 cm/s Mitral E to LV E' Lateral Ratio 4.5 LV E' Septal Velocity 9.5 cm/s Mitral E to LV E' Septal Ratio 7.1
[2018-04-09 08:02] LABS: ABSOLUTE BASOPHIL COUNT 0 /CUMM (0.0-0.2); ABSOLUTE EOSINOPHIL COUNT 0.1 /CUMM (0.0-0.7); ABSOLUTE GRANULOCYTE CT 3.2 /CUMM (1.4-6.5); ABSOLUTE LYMPH COUNT 1.6 /CUMM (1.2-3.4); ABSOLUTE MONOCYTE COUNT 0.4 /CUMM (0.10-0.60); BASOPHIL % 0.6 % (0.0-2.0); EOSINOPHIL % 1.7 % (0-5); GRANULOCYTE % 60.8 % (42.2-75.2); HEMATOCRIT 47.6 % (37-47); MEAN CORPUSCULAR HGB 31.8 PG (27.0-31.0); MEAN CORPUSCULAR HGB CONC 33.6 G/DL (33.0-37.0); MEAN CORPUSCULAR VOLUME 94.5 FL (81.0-99.0); MEAN PLATELET VOLUME 9.7 FL (7.4-10.4); PLATELET COUNT 141 /CUMM (130-400); RED BLOOD CELL CT 5.04 /CUMM (4.20-5.40); WHITE BLOOD CELL COUNT 5.2 /CUMM (4.8-10.8)
--- NOTE | 2018-04-09 08:33 | PN- Student ---
Subjective Subjective: Pt was seen and examined this morning and reports no acute events overnight. She reports continued discomfort due to her collar and remaining inactive in bed. She has decreased neck pain compared to yesterday which she describes as a dull ache and increased R shoulder pain which is achy. Pt indicates that she has decreased dizziness and palpitations today compared to yesterday. She denies chest pain, SOB, diaphoresis, and weakness. Pt gave a more thorough medical history compared to previously. PMH - Osteoporosis - she took fosamax for 1 yr but discontinued 10 months ago - BPPV - has had dizziness, does not lay flat - mitral valve prolapse - asymptomatic - cataracts PSHx - L rotator cuff repair - R rotator cuff repair - L knee repair x 2 - Repair of R zygomatic arch and orbit secondary to trauma (childhood) Social Hx Pt is and has 2 grown children. 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 She enjoys kayaking and hiking. Objective Objective: Vital Signs Result Date Time Pulse Ox 97 04/08 2201 B/P 132/74 04/08 2201 Temp 97.4 04/08 220 Pulse 61 04/08 2201 Resp 18 04/08 2201 O2 Delivery Room Air 04/08 1410 O2 Flow Rate Room Air 04/07 1501 Intake & Output 04/09 0000 04/08 1600 04/08 0800 Intake Total 200 800 480 Output Total Balance 200 800 480 Intake, Oral 200 800 480 Tele: Sibus marco a, rate in 50s, pauses intermittently PE: Gen - NAD, resting with cervical collar in place Psych - appropriately anxious regarding upcoming surgery Neuro - AOx4 CV - bradycardia, S1 and S2 crisp with quiet opening snap at the L5th interspace in the midclavicular line, some premature beats appreciated but infrequent Pulm - CTA BL Abd - soft, nontender, nondistended Ext - warm and well perfused, R shoulder with limited motion and 4/5 strenght, L arm and legs BL WNL Results Results: Laboratory Tests 04/09/18 0703: Anion Gap 10, Estimated GFR > 60, BUN/Creatinine Ratio 17.1, CBC w Diff NO MAN DIFF REQ, RBC 5.04, MCV 94.5, MCH 31.8 H, MCHC 33.6, RDW 13.0, MPV 9.7, Gran % 60.8, Lymphocytes % 29.9, Monocytes % 7.0, Eosinophils % 1.7, Basophils % 0.6, Absolute Granulocytes 3.2, Absolute Lymphocytes 1.6, Absolute Monocytes 0.4, Absolute Eosinophils 0.1, Absolute Basophils 0 04/07/18 1214: Troponin I < 0.01 04/07/18 0725: Troponin I < 0.01 04/07/18 0007: Anion Gap 13, Estimated GFR > 60, BUN/Creatinine Ratio 18.6, Glucose 96, Calcium 9.6, Magnesium 1.9, Total Bilirubin 0.5, AST 35, ALT 33, Alkaline Phosphatase 50 , Troponin I < 0.01, Total Protein 7.1, Albumin 4.5, Globulin 2.6, Albumin/ Globulin Ratio 1.7, Free T4 1.02, Total T3 1.08, TSH &T3 &Free T4 Intrp 4.960 H , PT 11.0, INR 1.01, APTT 28, CBC w Diff NO MAN DIFF REQ, RBC 4.79, MCV 93.0, MCH 32.3 H, MCHC 34.7, RDW 13.4, MPV 9.6, Gran % 45.7, Lymphocytes % 46.7, Monocytes % 5.0, Eosinophils % 2.0, Basophils % 0.6, Absolute Granulocytes 2.7, Absolute Lymphocytes 2.7, Absolute Monocytes 0.3, Absolute Eosinophils 0.1, Absolute Basophils 0 Assessment/Plan Assessment: Assessment: Pt is a 57YOF who has a PMH of asyptomatic MVP, BPPV, osteoporosis tx with fosfamax for 1 year d/c 10 mo ago, and cataracts. She presented to the ED 2 days ago after a syncopal episode at home where she felt palpitations with dipahoresis, +LOC, with a fall causing trauma to the posterior cervical spine but not to the head. She has been found with cervical spine/head CT to have R sided C6 and C7 articular facet fractures as well as a fracture through the posterior medial lamina of C6 just proximal to the spinous process. Serial trops were negative and labs were unremarkable except for an elevated TSH. EKG continues to show bradycardia with pauses. Problem List/Plan: 1. Syncope Cardiology has consulted on the patient. It's agreed that the most likely etiology of the patient's syncope and episode of LOC is due to the pauses observed on EKG. * Patient received permanent pacemaker today with successful surgery. Procedure had no complications. However, patient continues to have mild palpitations. Will follow. * Can resume regular diet. * F/u cardiology recommendations. 2. Cervical spinal fractures Pt's fractures likely secondary to her fall during syncopal event. Pt has been kept in cervical collar since arrival. * Neurology consult indicated need for [place] J collar x2 for at least 3 weeks 24hr wear. F/u outpatient with neurology in 3 wks. 3. Osteoporosis Pt has hx of osteoporosis and is currently taking Vit D. * Continue vitamin D. * Determine if patient has had recent DEXA scan. * F/u outpatient. Diet: Regular after surgical procedure DVT: Heparin SQ Code: Full
--- NOTE | 2018-04-09 09:01 | PN- Cardiology ---
Subjective Subjective: The patient continues to note palpitations and lightheadedness. She is having multiple episodes of pauses up to 3 seconds and sinus bradycardia in the 30s while on telemetry. No chest pain. No diaphoresis. No orthopnea. Objective Vital Signs and I&Os Vital Signs Date Time Temp Pulse Resp B/P B/P Pulse O2 O2 Flow FiO2 Mean Ox Delivery Rate 04/08 2201 97.4 61 18 132/74 97 04/08 1410 98.5 62 18 118/68 97 Room Air Intake & Output 04/09 1600 04/09 0800 04/09 0000 04/08 1600 04/08 0804/08 0000 Intake Total 200 800 480 480 Output Total Balance 200 800 480 480 Intake, Oral 200 800 480 480 Physical Exam: Gen: NAD HEENT: normal Lungs: clear to auscultation, normal resp. effort Heart: RRR, S1, S2, no murmurs Abdomen: Soft, nontender, no masses Extremities: No clubbing, cyanosis, or edema. Neuro: Alert and oriented x 3, cranial nerves intact Current Medications: Current Medications Sig/Gilma Start time Last Medication Dose Route Stop Time Status Admin Acetaminophen 650 MG .STK-MED ONE 04/08 1942 DC PO 04/08 194 Acetaminophen 650 MG Q6P PRN 04/07 0600 AC 04/09 PO 0432 Heparin Sodium 5,000 UNIT Q8 04/07 06 AC 04/09 (Porcine) SC 0538 Ketorolac 15 MG ONCE ONE 04/08 1130 DC 04/08 Tromethamine IV 04/08 1131 1147 Morphine Sulfate 2 MG Q4P PRN 04/07 06 AC IV Oxycodone/ 1 TAB Q6P PRN 04/07 06 AC Acetaminophen PO Results Last 48 Hrs of Labs/Mics: Laboratory Tests 04/09/18 0703: Sodium Pending, Potassium Pending, Chloride Pending, Carbon Dioxide Pending, Anion Gap Pending, BUN Pending, Creatinine Pending, BUN/Creatinine Ratio Pending , CBC w Diff NO MAN DIFF REQ, RBC 5.04, MCV 94.5, MCH 31.8 H, MCHC 33.6, RDW 13.0, MPV 9.7, Gran % 60.8, Lymphocytes % 29.9, Monocytes % 7.0, Eosinophils % 1.7, Basophils % 0.6, Absolute Granulocytes 3.2, Absolute Lymphocytes 1.6, Absolute Monocytes 0.4, Absolute Eosinophils 0.1, Absolute Basophils 0 04/07/18 1214: Troponin I < 0.01 Assessment/Plan Assessment/Plan 1. Recurrent palpitations 2. Recurrent syncope, likely secondary to bradycardia arrhythmia 3. Cervical fracture 4. Reported history of mitral prolapse 5. Frequent pauses and sinus bradycardia with associated lightheadedness. Plan: * Given the recurrent syncope secondary to sinus bradycardia and sinus pauses, I recommend permanent pacemaker placement. This will be arranged in the hospital today or tomorrow. * Hard collar is in place for C6-C7 fracture Continue telemetry? Yes
--- NOTE | 2018-04-09 13:01 | RADIOLOGY REPORT ---
EXAMINATION: XR PORTABLE CHEST CLINICAL INFORMATION: Status post pacemaker placement COMPARISON: CXR from 04/07/2018 TECHNIQUE: Portable frontal view of the chest was obtained. FINDINGS: The lungs are well expanded and clear. No pulmonary edema, consolidation, pneumothorax or pleural effusion. Left pectoral region cardiac pacemaker with transvenous leads extending to the right atrium and right ventricle. Cardiac silhouette is normal in size. The hilar contours are normal. There is atherosclerotic calcification of the aorta. The visualized bones are intact. IMPRESSION: No acute cardiopulmonary abnormality in this patient who is status post pacemaker placement.
--- NOTE | 2018-04-09 13:12 | Cons- Thoracic Surgery ---
General Information and HPI Consulting Request Date of Consult: 04/07/18 Requested By: Rajesh GREENBERG,Adri Ivey Reason for Consult: Assessment permanent pacemaker placement for symptomatic bradycardia Source of Information: patient, old records, PCP Exam Limitations: no limitations History of Present Illness: Patient is a 57-year-old woman who came in following a syncopal episode. She was walking to get some water and noticed palpitations with diaphoresis. She became unconscious and her found her after 1 minute. The fall was such that she hurt her neck and came to the emergency room for further evaluation. Evaluation has shown some episodic sinus arrest and evidence of facet fracture of her cervical spine. She is referred for consideration for permanent pacemaker placement. Of note is that she had an outpatient echocardiogram and Holter monitor with plan referral to a workforce development vice president for palpitations. She is also had a previous syncopal episode that happened 2 years ago. Allergies/Medications Allergies: Uncoded Allergies: ramirze butter (ITCHING, BURNING RASH 04/07/18) Home Med List: Cholecalciferol (Vitamin D3) (Vitamin D) (Unknown Strength) TABLET (Unknown Dose) PO DAILY SUPPLEMENT (Reported) Fluticasone Propionate (Flonase Allergy Relief) 50 MCG/ACTUATION SPRAY.SUSP 1 SPRAY OSEAS PRN ALLERGIES (Reported) Current Medications: Current Medications Sig/Gilma Start time Last Medication Dose Route Stop Time Status Admin Acetaminophen 650 MG .STK-MED ONE 04/09 0430 DC PO 04/09 0431 Acetaminophen 650 MG .STK-MED ONE 04/08 1942 DC PO 04/08 194 Acetaminophen 650 MG Q6P PRN 04/07 0600 AC 04/09 PO 0432 Cefazolin Sodium 2 GM IQ8 04/09 1600 AC N/A 1 UNIT IV 04/10 0029 Heparin Sodium 5,000 UNIT Q8 04/07 0600 AC 04/09 (Porcine) SC 0538 Morphine Sulfate 2 MG Q4P PRN 04/07 0600 AC IV Oxycodone/ 1 TAB Q6P PRN 04/07 0600 AC Acetaminophen PO Scopolamine HBr 0 .STK-MED ONE 04/09 1024 DC TOP Past History Medical History Neurological: NONE EENT: cataracts Cardiovascular: mitral prolapse Respiratory: NONE Gastrointestinal: NONE Hepatic: NONE Renal: NONE Musculoskeletal: NONE Psychiatric: NONE Endocrine: osteoporosis Blood Disorders: NONE Cancer(s): NONE 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 Home Who Do You Live With? 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 There was no prodrome and no seizure activity. She has had intermittent palpitations including palpitations while in the hospital. She has had no chest pain and no dyspnea. The rest of her 12 point review of systems is unremarkable. Exam & Diagnostic Data Vital Signs and I&O Vital Signs Date Time Temp Pulse Resp B/P B/P Pulse O2 O2 Flow FiO2 Mean Ox Delivery Rate 04/08 2201 97.4 61 18 132/74 97 04/08 1410 98.5 62 18 118/68 97 Room Air Intake & Output 04/09 1600 04/09 0800 04/09 0000 04/08 1600 04/08 0800 04/08 0000 Intake Total 200 800 480 480 Output Total Balance 200 800 480 480 Intake, Oral 200 800 480 480 Physical Exam: On physical examination she appears well. Her skin is warm and well perfused no suspicious lesions noted. The sclerae are anicteric and mucous membranes are moist. There is no cervical or supraclavicular lymphadenopathy. Her breath sounds are clear bilaterally with no wheezes rhonchi noted. The cardiac exam shows a regular rhythm and rate no murmurs or sounds. The abdomen is soft and nontender with no masses. The periphery shows no cyanosis clubbing or edema. Her neurologic exam is grossly normal motor and sensory function. Last 24 Hours of Labs: Laboratory Tests 04/09 0703 Chemistry Sodium (137 - 145 mmol/L) 141 Potassium (3.5 - 5.1 mmol/L) 4.0 Chloride (98 - 107 mmol/L) 104 Carbon Dioxide (22 - 30 mmol/L) 27 Anion Gap (5 - 16) 10 BUN (7 - 17 mg/dL) 12 Creatinine (0.5 - 1.0 mg/dL) 0.7 Estimated GFR (>60 ml/min) > 60 BUN/Creatinine Ratio (7 - 25 %) 17.1 Hematology CBC w Diff NO MAN DIFF REQ WBC (4.8 - 10.8 /CUMM) 5.2 RBC (4.20 - 5.40 /CUMM) 5.04 Hgb (12.0 - 16.0 G/DL) 16.0 Hct (37 - 47 %) 47.6 H MCV (81.0 - 99.0 FL) 94.5 MCH (27.0 - 31.0 PG) 31.8 H MCHC (33.0 - 37.0 G/DL) 33.6 RDW (11.5 - 14.5 %) 13.0 Plt Count (130 - 400 /CUMM) 141 MPV (7.4 - 10.4 FL) 9.7 Gran % (42.2 - 75.2 %) 60.8 Lymphocytes % (20.5 - 51.1 %) 29.9 Monocytes % (1.7 - 9.3 %) 7.0 Eosinophils % (0 - 5 %) 1.7 Basophils % (0.0 - 2.0 %) 0.6 Absolute Granulocytes (1.4 - 6.5 /CUMM) 3.2 Absolute Lymphocytes (1.2 - 3.4 /CUMM) 1.6 Absolute Monocytes (0.10 - 0.60 /CUMM) 0.4 Absolute Eosinophils (0.0 - 0.7 /CUMM) 0.1 Absolute Basophils (0.0 - 0.2 /CUMM) 0 Other Results: Episodic sinus bradycardia and sinus pauses are noted on the monitor. Assessment/Plan Assessment/Plan 57-year-old with planned outpatient workup for palpitations and slow heart rate with 2 syncopal episodes in the past. I think given the nature of the event and the episodes seen on the monitor a permanent pacemaker is indicated. There might be a want or desire for further electrophysiologic evaluation but this can be done after pacemaker placement. The cervical pump collar should not be a problem as long as we can get cephalic or subclavian access. We can leave the collar in place during the procedure. I explained the risks and benefits of pacemaker placement including bleeding infection pneumothorax and cardiac chamber perforation. She understands and agrees and will proceed on Monday morning with an MRI compatible dual-chamber pacemaker. Copies To: Amara GREENBERG,Tala; Amara GREENBERG,Tahir Ivey; Nevin GREENBERG,Arjun Snow Consult Acknowledgment - Thank you for your consult request.
--- NOTE | 2018-04-09 13:15 | Operative Report ---
Operative/Inv Procedure Report Surgery Date: 04/09/18 Name of Procedure: MRI compatible dual-chamber pacemaker Pre-Operative Diagnosis: Sick sinus syndrome with symptomatic bradycardia and syncope Post-Operative Diagnosis: Same Estimated Blood Loss: scant Surgeon/Animal Keeper: Martell Zamarripa MD Anesthesia: laryngeal mask airway Operative/Procedure Note Note: After placement of monitoring lines and induction of the laryngeal mask airway anesthesia of the cervical collar was kept in position and was out of the intended operative field. The patient's left shoulder and upper chest were prepped and draped in a sterile fashion. Incision was made in the deltopectoral groove and carried down to prepectoralis fascia. There was a cephalic vein encountered and this was encircled with silk ties. Small venotomy was made in a guidewire was passed into the right atrium under fluoroscopic guidance. A Medtronic passive fixation pacemaker lead model # [id number] was then passed through the venotomy into the pulmonary outflow tract under fluoroscopic guidance. It was withdrawn into the right ventricular cavity and positioned at the right ventricular apex. R waves were measured 7.2 mV with an impedance of 1225 ohms. The pacing threshold was at 0.3 V. Sheath dilator was then passed over the retained guidewire and a Medtronic preforms atrial lead model #[id number] was then positioned in the right atrial appendage under fluoroscopic guidance. R waves were measured 5.2 mV. The pacing threshold was 0.3 V with an impedance of 725 ohms. The leads were tied to the cephalic vein which was then occluded and they were then secured to the prepectoralis fascia with Ethibond sutures. A pacemaker pocket was fashioned and the leads were then connected to an MRI compatible Medtronic dual-chamber pacemaker. Pocket was irrigated with antibiotic irrigation. The hemostasis was achieved with electrocautery and with surgical clips. The wound was closed in layers with deep Vicryl suture followed by running Vicryl subcuticular suture. The patient tolerated procedure well was brought to recovery room awake and extubated in stable condition. CC: Amara GREENBERG,Tala; Amara GREENBERG,Tahir Ivey; Arjun Rooney MD
[2018-04-09 14:24] VITALS: BP 132/80
--- NOTE | 2018-04-09 15:22 | Cons- Neurosurgical ---
General Information and HPI Consulting Request Date of Consult: 04/09/18 Requested By: Adri Mena MD Reason for Consult: Cervical fractures status post fall Source of Information: patient, family Exam Limitations: no limitations History of Present Illness: Patient is a 57-year-old female who apparently had an arrhythmia which she describes as bradycardia and had a syncopal episode. She fell striking her head and was brought to the hospital by her family on Monday when this happened. She was found to have nondisplaced fractures of C6 and C7 was placed in a collar. Neurosurgery consult was placed. She just had a pacemaker implanted earlier today. Her left arm is in a sling only because of the implantation not because of a fracture. She had some numbness and weakness in her right upper extremity but she states that that has resolved. She has minimal neck pain at this time. She believes she is having some muscle spasms. She denies any problems the left upper extremity or her lower extremities. She denies any incontinence. Allergies/Medications Allergies: Uncoded Allergies: ashley butter (ITCHING, BURNING RASH 04/07/18) Home Med List: Cholecalciferol (Vitamin D3) (Vitamin D) (Unknown Strength) TABLET (Unknown Dose) PO DAILY SUPPLEMENT (Reported) Fluticasone Propionate (Flonase Allergy Relief) 50 MCG/ACTUATION SPRAY.SUSP 1 SPRAY OSEAS PRN ALLERGIES (Reported) Current Medications: Current Medications Sig/Gilma Start time Last Medication Dose Route Stop Time Status Admin Acetaminophen 650 MG .STK-MED ONE 04/09 0430 DC PO 04/09 043 Acetaminophen 650 MG .STK-MED ONE 04/08 194 DC PO 04/08 1943 Acetaminophen 650 MG Q6P PRN 04/07 0600 AC 04/09 PO 0432 Cefazolin Sodium 2 GM IQ8 04/09 1600 AC N/A 1 UNIT IV 04/10 0029 Heparin Sodium 5,000 UNIT Q8 04/07 0600 AC 04/09 (Porcine) SC 0538 Ketorolac 15 MG Q8P PRN 04/09 1500 AC Tromethamine IV Morphine Sulfate 2 MG Q4P PRN 04/07 0600 AC IV Ondansetron HCl 4 MG Q6P PRN 04/09 1500 AC IV Oxycodone/ 1 TAB Q6P PRN 04/07 06 AC Acetaminophen PO Scopolamine HBr 0 .STK-MED ONE 04/09 1024 DC TOP Past History Medical History Neurological: NONE EENT: cataracts Cardiovascular: mitral prolapse Respiratory: NONE Gastrointestinal: NONE Hepatic: NONE Renal: NONE Musculoskeletal: NONE Psychiatric: NONE Endocrine: osteoporosis Blood Disorders: NONE Cancer(s): NONE 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 Home Who Do You Live With? 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 Left upper extremity is in sling due to the recent implantation of her pacemaker Otherwise she has good movement and strength in her left upper extremity. Right upper extremity does not demonstrate any weakness. She is apprehensive due to her recent surgery. Sensation is intact in both upper and lower extremities. She has good movement in her lower extremities strength is adequate. Cervical collar that is currently in place is not fitting well and is not sufficient. Last 24 Hours of Labs: Laboratory Tests 04/09 07 Chemistry Sodium (137 - 145 mmol/L) 141 Potassium (3.5 - 5.1 mmol/L) 4.0 Chloride (98 - 107 mmol/L) 104 Carbon Dioxide (22 - 30 mmol/L) 27 Anion Gap (5 - 16) 10 BUN (7 - 17 mg/dL) 12 Creatinine (0.5 - 1.0 mg/dL) 0.7 Estimated GFR (>60 ml/min) > 60 BUN/Creatinine Ratio (7 - 25 %) 17.1 Hematology CBC w Diff NO MAN DIFF REQ WBC (4.8 - 10.8 /CUMM) 5.2 RBC (4.20 - 5.40 /CUMM) 5.04 Hgb (12.0 - 16.0 G/DL) 16.0 Hct (37 - 47 %) 47.6 H MCV (81.0 - 99.0 FL) 94.5 MCH (27.0 - 31.0 PG) 31.8 H MCHC (33.0 - 37.0 G/DL) 33.6 RDW (11.5 - 14.5 %) 13.0 Plt Count (130 - 400 /CUMM) 141 MPV (7.4 - 10.4 FL) 9.7 Gran % (42.2 - 75.2 %) 60.8 Lymphocytes % (20.5 - 51.1 %) 29.9 Monocytes % (1.7 - 9.3 %) 7.0 Eosinophils % (0 - 5 %) 1.7 Basophils % (0.0 - 2.0 %) 0.6 Absolute Granulocytes (1.4 - 6.5 /CUMM) 3.2 Absolute Lymphocytes (1.2 - 3.4 /CUMM) 1.6 Absolute Monocytes (0.10 - 0.60 /CUMM) 0.4 Absolute Eosinophils (0.0 - 0.7 /CUMM) 0.1 Absolute Basophils (0.0 - 0.2 /CUMM) 0 Imaging Results: CAT scan of the cervical spine demonstrates nondisplaced fractures of the facet on the right at C6 and C7. There is also nondisplaced laminar fractures at C6. Assessment/Plan Assessment/Plan Nondisplaced cervical fracture C6 and C7. Recommend rigid cervical collar 03/04. I have ordered her to [place] J cervical collar's from [employer]. [employer] office number is [phone]. They will be here later today to fit her for a properly sized [place] J cervical collar and a second collar for showering. Patient should follow up with our office in 3 weeks with x-rays which are office will order. Please contact Dr. Cevallos's office for follow-up appointment. [phone] Problem List: 1. Syncope 2. Sinus pause 3. Cervical spine fracture Consult Acknowledgment - Thank you for your consult request.
--- NOTE | 2018-04-09 15:56 | RADIOLOGY REPORT ---
EXAMINATION: CR ABDOMEN/INTRAOPERATIVE FLUOROSCOPY CLINICAL INDICATION: Pacemaker insertion. COMPARISON: Chest x-ray dated 04/09/2018. TECHNIQUE/FINDINGS: Fluoroscopic equipment was dedicated to the operating room for the performance of an intraoperative procedure. Several (8) spot films were acquired and are archived in PACS. Please refer to operative notes for procedural detail. FLUOROSCOPY TIME: 11 minutes. IMPRESSION: Administrative dictation for intraoperative fluoroscopy and image archiving in PACS. Please refer to operative notes for details.
--- NOTE | 2018-04-09 16:25 | Patient Discharge Instructions ---
Discharge Instructions General Discharge Information You were seen/treated for: Syncope, sinus pause status post pacemaker placement Nondisplaced cervical fracture Special Instructions: Follow-up with PCP in 1 week after discharge Follow-up with cardiology in 1 week after discharge Follow-up with the neurosurgery in 3 weeks after discharge Follow-up with cardiothoracic surgery in 1-2 weeks after discharge Patient was provided properly sized [place] J cervical collar and also a second collar for showering purposes she should have cervical collar 24 hours as per neurosurgery recommendations. Diet Continue normal diet: Yes Activity Activity Self Limited: Yes Acute Coronary Syndrome Inclusion Criteria At DC or during hospital stay patient has or had the following: ACS DIAGNOSIS No Discharge Core Measures Meds if any: Prescribed or Continued at Discharge Meds if any: NOT Prescribed or Continued at Discharge Congestive Heart Failure Inclusion Criteria At DC or during hospital stay patient has or had the following: CHF DIAGNOSIS No Discharge Core Measures Meds if any: Prescribed or Continued at Discharge Meds if any: NOT Prescribed or Continued at Discharge Cerebrovascular accident Inclusion Criteria At DC or during hospital stay patient has or had the following: CVA/TIA Diagnosis No Discharge Core Measures Meds if any: Prescribed or Continued at Discharge Meds if any: NOT Prescribed or Continued at Discharge Venous thromboembolism Inclusion Criteria VTE Diagnosis No VTE Type NONE VTE Confirmed by (Test) NONE Discharge Core Measures - Per Current guidelines, there needs to be overlap - treatment for the first 5 days of Warfarin therapy. - If discharged on Warfarin prior to 5 days of - overlap therapy, the patient will need to be - assessed for post discharge needs including - *Post discharge parental anticoagulation - *Warfarin and/or parental anticoagulation education - *Follow up date to check INR post discharge At least 5 days overlap therapy as Inpatient No Meds if any: Prescribed or Continued at Discharge Note: Overlap Therapy is Warfarin and Anticoagulant Meds if any: NOT Prescribed or Continued at Discharge
[2018-04-09 22:36] VITALS: BP 120/80
--- NOTE | 2018-04-10 04:56 | Event Note ---
Event Note Event Note: Situation: I was notified by the nurse that there is a little V. tach's recorded from telemetry monitoring. Background: Ms. ofelia cunha is a pleasant 57-year-old woman with past medical history significant for mitral valve prolapse who came to [facility] ER with an episode of syncope. She has had chronic palpitations, and recently she had cervical neck fracture S/P collar in place. She also had some sinus pauses and pacemaker was placed for her yesterday. Assessment: There is a 9 beat run of V. tach followed by sinus paced rhythm, followed by sinus sensed and ventricular paced rhythms, which happened 3 times with another 4 beat run of V. tach. It happened at 4: 10 AM. The patient's felt palpitation during that episode, otherwise she was stable hemodynamically. Recommendation: Electrolytes including potassium, magnesium, calcium will be rechecked. Nursing cnc supervisor asked for interrogation of the pacemaker. Since the patient is hemodynamically stable and there is no electrolyte abnormality in the previous labs, cardiology consult will be placed for tomorrow morning to visit the patient. The reason behind that could be seen as epithelization of the pacemaker electrode has not happened yet, these abnormalities might happen.
[2018-04-10 05:34] LABS: ABSOLUTE BASOPHIL COUNT 0 /CUMM (0.0-0.2); ABSOLUTE EOSINOPHIL COUNT 0 /CUMM (0.0-0.7); ABSOLUTE LYMPH COUNT 1.5 /CUMM (1.2-3.4); BASOPHIL % 0.3 % (0.0-2.0); MEAN PLATELET VOLUME 9.3 FL (7.4-10.4)
[2018-04-10 05:46] LABS: ABSOLUTE GRANULOCYTE CT 5.8 /CUMM (1.4-6.5); ABSOLUTE MONOCYTE COUNT 0.5 /CUMM (0.10-0.60); EOSINOPHIL % 0.3 % (0-5); GRANULOCYTE % 73.6 % (42.2-75.2); HEMATOCRIT 45.4 % (37-47); MEAN CORPUSCULAR HGB 31.6 PG (27.0-31.0); MEAN CORPUSCULAR HGB CONC 33.8 G/DL (33.0-37.0); MEAN CORPUSCULAR VOLUME 93.7 FL (81.0-99.0); PLATELET COUNT 142 /CUMM (130-400); RBC DISTRIBUTION WIDTH 13.1 % (11.5-14.5); RED BLOOD CELL CT 4.85 /CUMM (4.20-5.40)
[2018-04-10 05:49] LABS: WHITE BLOOD CELL COUNT 7.9 /CUMM (4.8-10.8)
[2018-04-10 06:20] VITALS: BP 110/62
--- NOTE | 2018-04-10 07:21 | PN- Housestaff ---
David Morfin 04/10/18 0721: Subjective Follow-up For: Cervical fracture and syncope and chronic palpitations Complaints: pounding sensation in the chest Tele-Events Since Last Visit: EKG showed PVCs Subjective: Patient complained of pounding sensation in her chest that started at 4 AM in the morning status post pacemaker implantation. The pounding sensation is different from the fluttering sensation that she experienced previous to the pacemaker implantation. Patient is ambulating and denies dizziness ,syncope, or lightheadedness. No history of chest pain or shortness of breath. Review of Systems Constitutional: Reports: see HPI. Objective Last 24 Hrs of Vital Signs/I&O Vital Signs Date Time Temp Pulse Resp B/P B/P Pulse O2 O2 Flow FiO2 Mean Ox Delivery Rate 04/10 1310 97.3 59 18 112/70 97 Room Air 04/10 0620 97.9 64 18 110/62 98 Room Air 04/09 2236 98.3 65 18 120/80 98 Room Air Intake & Output 04/10 1600 04/10 0800 04/10 0000 Intake Total 360 120 120 Output Total Balance 360 120 120 Intake, Oral 360 120 120 Patient 144 lb Weight Physical Exam General Appearance: Alert, Oriented X3, Cooperative, No Acute Distress Neck: Supple ([place] J neck collar) Cardiovascular: Regular Rate, No Murmurs Lungs: Clear to Auscultation, Normal Air Movement Abdomen: Normal Bowel Sounds, Soft, No Tenderness, No Hepatospenomegaly, No Masses Neurological: Normal Speech, Strength at 5/5 X4 Ext, Normal Tone, Sensation Intact Extremities: No Clubbing, No Cyanosis, No Edema, Normal Pulses, No Tenderness/ Swelling Assessment/Plan Problem List: 1. PVC (premature ventricular contraction) Patient was found to have PVCs status post pacemaker implantation, That started at 4 AM in the morning. Patient complained of pounding sensation in the chest different from previous fluttering sensation before. Pacemaker implantation. cisimples was called and the pacemaker was found to be misplaced in the ventricle that caused the PVCs. Cardiology was consulted and repositioning of the pacemaker lead was undertaken. Patient tolerated the procedure well and is asymptomatic following the repositioning. Patient will be observed on continuous telemetry without interruption 2. Syncope Patient had sinus pauses cause syncope and was treated with pacemaker The patient is asymptomatic on t telemetry monitoring post pacemaker repositioning, she may be discharged 3. Cervical spine fracture Patient has a cervical fracture on C6-C7 right-sided articular facet and is being treated with [place] J cervical neck collar Patient is tolerating the collar well and will be continued for 3 weeks to be worn 24 hours Follow-up with neurosurgery within 1 week of discharge Pain Ratin Pain Location: C6-C7 vertebral Pain Goal: Remain pain free Pain Plan: On Tylenol Tomorrow's Labs & Rationales: None l DVT/Prophylaxis: early ambulation low risk Adri Mena MD 04/10/18 1130: Attending MD Review Statement Attending Statement Attending MD Statement: examined this patient, discuss w/resident/PA/MEAT PROCESS WORKER, agreed w/resident/PA/MEAT PROCESS WORKER, reviewed EMR data (avail), discussed with nursing Attending Assessment/Plan: Patient was having episodes of palpitations and multiple PVCs earlier this morning. The pacemaker was interrogated it appears that the atrial lead has moved into the ventricle. We notified Dr. Shah and Dr. Zamarripa immediately and she is going back to the OR to have the lead placed.
--- NOTE | 2018-04-10 09:41 | PN- Cardiology ---
Subjective Subjective: The patient was noted on telemetry to have runs of nonsustained ventricular tachycardia on telemetry this morning. She complained of palpitations associated with this. No diaphoresis. No chest pain. No shortness of breath. No diaphoresis. Interrogation of the pacemaker reveals that the left atrial lead has moved into the ventricle. Objective Vital Signs and I&Os Vital Signs Date Time Temp Pulse Resp B/P B/P Pulse O2 O2 Flow FiO2 Mean Ox Delivery Rate 04/10 0620 97.9 64 18 110/62 98 Room Air 04/09 2236 98.3 65 18 120/80 98 Room Air 04/09 1424 98.0 64 20 132/80 98 Room Air Intake & Output 04/10 1600 04/10 0804/10 0000 04/09 1600 04/09 0804/09 0000 Intake Total 120 120 200 Output Total Balance 120 120 200 Intake, Oral 120 120 200 Patient 144 lb Weight Physical Exam: Gen: NAD HEENT: normal Lungs: clear to auscultation, normal resp. effort Heart: RRR, S1, S2, no murmurs Abdomen: Soft, nontender, no masses Extremities: No clubbing, cyanosis, or edema. Neuro: Alert and oriented x 3, cranial nerves intact Current Medications: Current Medications Sig/Gilma Start time Last Medication Dose Route Stop Time Status Admin Acetaminophen 650 MG .STK-MED ONE 04/09 1732 DC PO 04/09 1733 Acetaminophen 1,000 MG .STK-MED ONE 04/09 1026 DC IV 04/09 1027 Acetaminophen 650 MG Q6P PRN 04/07 0600 AC 04/09 PO 1735 Cefazolin Sodium 2 GM IQ8 04/09 1600 DC 04/09 N/A 1 UNIT IV 04/10 0029 2348 Heparin Sodium 5,000 UNIT Q8 04/07 0600 AC 04/09 (Porcine) SC 0538 Hydromorphone HCl 2 MG .STK-MED ONE 04/09 1245 DC IM 04/09 1246 Hydromorphone HCl 2 MG .STK-MED ONE 04/09 1229 DC IM 04/09 1230 Ketorolac 15 MG Q8P PRN 04/09 1500 AC Tromethamine IV Ketorolac 30 MG .STK-MED ONE 04/09 1309 DC Tromethamine IM 04/09 1310 Magnesium Oxide 400 MG BID 04/10 0900 AC 04/10 PO 0614 Morphine Sulfate 2 MG Q4P PRN 04/07 0600 AC IV Ondansetron HCl 4 MG Q6P PRN 04/09 1500 AC IV Oxycodone/ 1 TAB Q6P PRN 04/07 0600 AC Acetaminophen PO Scopolamine HBr 0 .STK-MED ONE 04/09 1024 DC TOP Results Last 48 Hrs of Labs/Mics: Laboratory Tests 04/10/18 0605: Troponin I Cancelled 04/10/18 0505: Anion Gap 13, Estimated GFR > 60, BUN/Creatinine Ratio 16.3, Calcium 9.6, Magnesium 1.8, Troponin I 0.17 *H, CBC w Diff NO MAN DIFF REQ, RBC 4.85, MCV 93.7, MCH 31.6 H, MCHC 33.8, RDW 13.1, MPV 9.3, Gran % 73.6, Lymphocytes % 19.0 L, Monocytes % 6.8, Eosinophils % 0.3, Basophils % 0.3, Absolute Granulocytes 5.8, Absolute Lymphocytes 1.5, Absolute Monocytes 0.5, Absolute Eosinophils 0, Absolute Basophils 0 04/09/18 0703: Anion Gap 10, Estimated GFR > 60, BUN/Creatinine Ratio 17.1, CBC w Diff NO MAN DIFF REQ, RBC 5.04, MCV 94.5, MCH 31.8 H, MCHC 33.6, RDW 13.0, MPV 9.7, Gran % 60.8, Lymphocytes % 29.9, Monocytes % 7.0, Eosinophils % 1.7, Basophils % 0.6, Absolute Granulocytes 3.2, Absolute Lymphocytes 1.6, Absolute Monocytes 0.4, Absolute Eosinophils 0.1, Absolute Basophils 0 Recent Imaging Studies: Chest x-ray: No acute cardiopulmonary abnormality in this patient who is status post pacemaker placement. Assessment/Plan Assessment/Plan 1. Recurrent palpitations 2. Recurrent syncope, likely secondary to bradycardia arrhythmia 3. Cervical fracture 4. Reported history of mitral prolapse 5. Frequent pauses and sinus bradycardia with associated lightheadedness. 6. Status post pacemaker placement with malposition of atrial lead Plan: * The patient will be taken to the operating room today for repositioning of the atrial lead * Monitor overnight on telemetry with plan on discharge tomorrow if stable Continue telemetry? Yes
--- NOTE | 2018-04-10 10:19 | PN- Student ---
Subjective Subjective: Pt was well overnight until she began experiencing increasing fluttering sensations and pounding heart beats. She also complains of a moderate headache. Neck pain has decreased to 2/10 and she has no shoulder pain. Pt denies dizziness and SOB and has been ambulating in the room. At the time of the complaints, pt was found to be having V tach and PVCs sustained up to 12 beats. Her pacemaker was interrogated and [employer] was called. It was found that the pacemaker lead placed yesterday had migrated from the atrium to the ventricle. Attending and cardiology were called. Objective Objective: Vital Signs Date Time Temp Pulse Resp B/P B/P Pulse O2 O2 Flow FiO2 Mean Ox Delivery Rate 04/10 0620 97.9 64 18 110/62 98 Room Air 04/09 2236 98.3 65 18 120/80 98 Room Air 04/09 1424 98.0 64 20 132/80 98 Room Air Tele: Single pacing with intermittent VTach up to 12 beats, PVCs throughout PE Gen - mild distress and generalized discomfort Psych - appropriately anxious Neuro - AO x4, patellar reflexes 2+ BL CV - irregular, rate ranging from marco a to tachy, clear S1 and S2 Pulm - CTA BL Abd - soft, nontender, nondistended Ext - warm and well perfused, no edema, distal pulses 2+ BL Results Results: Laboratory Tests 04/10/18 0505: Anion Gap 13, Estimated GFR > 60, BUN/Creatinine Ratio 16.3, Calcium 9.6, Magnesium 1.8, Troponin I 0.17 *H, CBC w Diff NO MAN DIFF REQ, RBC 4.85, MCV 93.7, MCH 31.6 H, MCHC 33.8, RDW 13.1, MPV 9.3, Gran % 73.6, Lymphocytes % 19.0 L, Monocytes % 6.8, Eosinophils % 0.3, Basophils % 0.3, Absolute Granulocytes 5.8, Absolute Lymphocytes 1.5, Absolute Monocytes 0.5, Absolute Eosinophils 0, Absolute Basophils 0 04/09/18 0703: Anion Gap 10, Estimated GFR > 60, BUN/Creatinine Ratio 17.1, CBC w Diff NO MAN DIFF REQ, RBC 5.04, MCV 94.5, MCH 31.8 H, MCHC 33.6, RDW 13.0, MPV 9.7, Gran % 60.8, Lymphocytes % 29.9, Monocytes % 7.0, Eosinophils % 1.7, Basophils % 0.6, Absolute Granulocytes 3.2, Absolute Lymphocytes 1.6, Absolute Monocytes 0.4, Absolute Eosinophils 0.1, Absolute Basophils 0 04/07/18 1214: Troponin I < 0.01 Assessment/Plan Assessment: Pt is a 57YOF who has a PMH of asyptomatic MVP, BPPV, osteoporosis tx with fosfamax for 1 year d/c 10 mo ago, and cataracts. She presented to the ED 2 days ago after a syncopal episode at home where she felt palpitations with dipahoresis, +LOC, with a fall causing trauma to the posterior cervical spine but not to the head. She has been found with cervical spine/head CT to have R sided C6 and C7 articular facet fractures as well as a fracture through the posterior medial lamina of C6 just proximal to the spinous process. Serial trops were negative and labs were unremarkable except for an elevated TSH. EKG continues to show bradycardia with pauses. Pt went for pacemaker yesterday. Procedure successful but pt had lead migration from atrium to ventricle overnight and went back to OR for repositioning. Problem List/Plan: 1. Syncope Cardiology has consulted on the patient. It's agreed that the most likely etiology of the patient's syncope and episode of LOC is due to the pauses observed on EKG. * Patient received permanent pacemaker today with successful surgery but repositioning required. Will follow. * F/u cardiology recommendations. * Prepare for discharge tmr pending successful procedure and recovery this afternoon. 2. Cervical spinal fractures Pt's fractures likely secondary to her fall during syncopal event. Pt has been kept in cervical collar since arrival. * Neurology consult indicated need for [place] J collar x2 for at least 3 weeks 24hr wear. * F/u outpatient with neurology in 3 wks. 3. Osteoporosis Pt has hx of osteoporosis and is currently taking Vit D. * Continue vitamin D. * Determine if patient has had recent DEXA scan. * F/u outpatient. Diet: Regular after surgical procedure DVT: Heparin SQ Code: Full
--- NOTE | 2018-04-10 11:53 | RADIOLOGY REPORT ---
EXAMINATION: XR PORTABLE CHEST CLINICAL INFORMATION: 57-year-old female, status post pacemaker adjustment in PACU. COMPARISON: Chest done on 04/09/2018, and 04/07/2018 . TECHNIQUE: Portable frontal view of the chest was obtained. FINDINGS: Both lungs are symmetrically expanded and are clear. The cardiac mediastinal silhouette is within normal limits. Dual lead pacer device is present with intact leads projecting in the region of the right atrium and right ventricle. There is no left-sided pneumothorax present. The visualized upper abdomen is unremarkable. No significant change since prior chest radiograph done on 04/09/2018 at 12:31 PM. IMPRESSION: Dual-lead pacer device is present with intact leads and no evidence of any left-sided pneumothorax. No significant change since prior study done on 04/09/2018.
--- NOTE | 2018-04-10 12:02 | PN- Thoracic Surgery ---
Surgical Brief Attending Note Brief Attending Note: At 4 AM the patient began noticing significant palpitations. On interrogation this morning the atrial lead is dislodged and is in the ventricle. We will go ahead and reposition the atrial lead in the appendage
--- NOTE | 2018-04-10 12:07 | Operative Report ---
Operative/Inv Procedure Report Surgery Date: 04/10/18 Name of Procedure: Reposition atrial pacemaker lead Pre-Operative Diagnosis: Dislodged atrial pacemaker lead, sick sinus syndrome with sinus pause Post-Operative Diagnosis: Same Estimated Blood Loss: none Surgeon/Track Laying Equipment Operator: Martell Zamarripa MD Anesthesia: laryngeal mask airway Operative/Procedure Note Note: After placement of monitoring lines and induction of laryngeal mask airway anesthesia the left shoulder incision was prepped and draped in a sterile fashion. 1% lidocaine was used local anesthetic. The incision was reopened and the pacemaker was explanted. The atrial lead was freed and fluoroscopy showed that the tip had migrated medially and was probably in the ventricle. A stylette was passed into the lead to straighten it out. It was withdrawn into the superior vena cava and then readvanced into the right atrium and right atrial appendage. The positioning was slightly different than previously with the lead slightly more lateral. The stylette was withdrawn and the leads were tested. The atrial lead showed a pacing threshold of 0.4 V with a current of 0.5 mA and impedance of 555 ohms. P waves were measured at 1.9 mV. The ventricular lead was retested and was found to have a pacing threshold of 0.3 V with a current of 0.4 mA. The impedance was 1073 ohms. R waves were measured at 6.4 mV. Prior to fixation of the lead it was withdrawn slightly and the tip was stable in the appendage with no movement. An appropriate J was left in the lead with good positioning in the atrial appendage. The leads were once again tied to the cephalic vein and then the atrial lead was resecured to the pectoralis fascia. The leads were then reconnected to the pacemaker generator which was washed in antibiotic irrigation the pacemaker pocket was similarly irrigated. The wound was then reclosed with running Vicryl suture followed by running Vicryl subcuticular suture. The patient tolerated the procedure well and was brought to the recovery room extubated in stable condition.
[2018-04-10 13:10] VITALS: BP 112/70
[2018-04-10 21:50] VITALS: BP 130/78
[2018-04-11 06:40] VITALS: BP 106/66
--- NOTE | 2018-04-11 07:50 | PN- Student ---
Subjective Subjective: Pt was seen and examined at [facility] this morning. She had no overnight events and reports sleeping well. She is feeling much improved from yesterday with no fluttering sensations, chest pain/pressure, SOB, diaphoresis, or dizziness. Her neck pain is improved to 2/10 with acetaminophen for pain control PRN and both shoulders are pain free. She also denies headache, abdominal pain and leg pain. Tolerating regular diet, ambulating in the room, urinating independently, passing gas. Objective Objective: Vital Signs Result Date Time Pulse Ox 96 04/11 0640 B/P 106/66 04/11 0640 O2 Delivery Room Air 04/11 0640 Temp 97.7 04/11 0640 Pulse 60 04/11 0640 Resp 18 04/11 0640 O2 Flow Rate Room Air 04/07 1501 Intake & Output 04/11 0000 04/10 1600 04/10 0800 Intake Total 100 360 120 Output Total Balance 100 360 120 Intake, Oral 100 360 120 Patient 195 lb Weight Weight Bed scale Measurement Method Tele: Sinus pacing, rate 59-60, no episodes of V tach PE: Gen - NAD, comfortable Psych - appropriate mood and affect Neuro - AOx4 CV - tenderness to palpation over pacemaker site in upper L chest, RRR no MRG Pulm - CTA BL Abd - soft, nontender, nondistended Ext - warm and well perfused, PT/DP pulses 2+ BL Results Results: Laboratory Tests No New Labs Today 04/10/18 0505: Anion Gap 13, Estimated GFR > 60, BUN/Creatinine Ratio 16.3, Calcium 9.6, Magnesium 1.8, Troponin I 0.17 *H, CBC w Diff NO MAN DIFF REQ, RBC 4.85, MCV 93.7, MCH 31.6 H, MCHC 33.8, RDW 13.1, MPV 9.3, Gran % 73.6, Lymphocytes % 19.0 L, Monocytes % 6.8, Eosinophils % 0.3, Basophils % 0.3, Absolute Granulocytes 5.8, Absolute Lymphocytes 1.5, Absolute Monocytes 0.5, Absolute Eosinophils 0, Absolute Basophils 0 Assessment/Plan Assessment: Pt is a 57YOF who has a PMH of asyptomatic MVP, BPPV, osteoporosis tx with fosfamax for 1 year d/c 10 mo ago, and cataracts. She presented to the ED 4 days ago after a syncopal episode at home where she felt palpitations with dipahoresis, +LOC, with a fall causing trauma to the posterior cervical spine but not to the head. She has been found with cervical spine/head CT to have R sided C6 and C7 articular facet fractures as well as a fracture through the posterior medial lamina of C6 just proximal to the spinous process. Serial trops were negative and labs were unremarkable. Pt went to OR for pacemaker placement. Placement was complicated by migration of the lead to the ventricle and pt went back to OR yesterday for repositioning. Procedure was successful. Pt is in sinus pacing now since OR. Problem List/Plan: 1. Syncope Cardiology has consulted on the patient. It's agreed that the most likely etiology of the patient's syncope and episode of LOC is due to the pauses observed on EKG. * Pt received permanent pacemaker and can be discharged today as tele monitor has shown sustained sinus pacing. * F/u outpatient cardiology. 2. Cervical spinal fractures Pt's fractures likely secondary to her fall during syncopal event. Pt has been kept in cervical collar since arrival. * Neurology consult indicated need for [place] J collar x2 for at least 3 weeks 24hr wear. * F/u outpatient with neurology in 3 wks. 3. Osteoporosis Pt has hx of osteoporosis and is currently taking Vit D. * Continue vitamin D. * F/u outpatient. Diet: Regular DVT: Heparin SQ Code: Full
--- NOTE | 2018-04-11 07:54 | PN- Housestaff ---
David Morfin 04/11/18 0754: Subjective Follow-up For: Syncopa and cervical fracture Complaints: palpitations Subjective: Patient was doing well said that she did not have any kind of pounding in the chest or palpitations or any kind of uneasiness. She feels ready to go home Review of Systems Constitutional: Reports: see HPI. Objective Last 24 Hrs of Vital Signs/I&O Vital Signs Date Time Temp Pulse Resp B/P B/P Pulse O2 O2 Flow FiO2 Mean Ox Delivery Rate 04/11 0640 97.7 60 18 106/66 96 Room Air 04/10 2150 97.8 65 18 130/78 96 Room Air Intake & Output 04/11 1600 04/11 0800 04/11 0000 Intake Total 50 100 Output Total Balance 50 100 Intake, Oral 50 100 Patient 195 lb Weight Weight Bed scale Measurement Method Physical Exam General Appearance: Alert, Oriented X3, Cooperative, No Acute Distress Cardiovascular: Regular Rate, No Murmurs Lungs: Clear to Auscultation, Normal Air Movement Abdomen: Normal Bowel Sounds, Soft, No Tenderness, No Hepatospenomegaly, No Masses Neurological: Normal Speech, Strength at 5/5 X4 Ext, Normal Tone, Sensation Intact Extremities: No Clubbing, No Cyanosis, No Edema, Normal Pulses, No Tenderness/ Swelling Current Medications: Current Medications Sig/Gilma Start time Last Medication Dose Route Stop Time Status Admin Acetaminophen 650 MG Q6P PRN 04/10 1145 DCD 04/10 PO 1648 Heparin Sodium 5,000 UNIT Q8 04/07 06 DCD 04/11 (Porcine) SC 0536 Ketorolac 15 MG Q8P PRN 04/09 1500 DCD Tromethamine IV Magnesium Oxide 400 MG BID 04/10 0900 DCD 04/11 PO 0825 Morphine Sulfate 2 MG Q4P PRN 04/07 0600 DCD IV Ondansetron HCl 4 MG Q6P PRN 04/09 1500 DCD IV Oxycodone/ 1 TAB Q6P PRN 04/07 0600 DCD Acetaminophen PO Assessment/Plan Assessment: 57-year-old female with a history of mitral valve prolapse came to [facility] with an episode of syncope and was diagnosed with cervical fracture of the neck due to fall and sinus pauses requiring pacemaker. Problem List: 1. Sinus pause Repositioning of the lead of pacemaker stop the fluttering sensation in her chest Patient has been asymptomatic for the past 24 hours \Patient is ready for discharge To follow-up cardiology within 1 week of discharge 2. PVC (premature ventricular contraction) Pacemaker lead was found to be displaced Repositioning of the lead made the patient asymptomatic Patient was observed for the next 24 hours after repositioning of lead. Patient is ready for discharge 3. Cervical spine fracture Patient feels better on [place] J neck collar, decreased pain, -Patient is discharged on [place] J neck collar to be worn around the clock for 3 weeks -She will follow-up with neurology outpatient after 3 weeks Pain Ratin Pain Location: Neck Pain Goal: Remain pain free Pain Plan: Tylenol Tomorrow's Labs & Rationales: None Adri Mena MD 04/11/18 1059: Attending MD Review Statement Attending Statement Attending MD Statement: examined this patient, discuss w/resident/PA/HEALTHCARE PROJECT MANAGER, agreed w/resident/PA/HEALTHCARE PROJECT MANAGER, reviewed EMR data (avail), discussed with nursing, discussed with case mgmt, reviewed images Attending Assessment/Plan: Patient feels well. She had an uneventful night and her pacemaker was interrogated by the [employer] rep today. She stable to leave with close outpatient follow-up. She also knows she needs neurosurgical follow-up at her fracture and has been provided with 2 collars on discharge.
--- NOTE | 2018-04-11 09:58 | PN- Cardiology ---
Objective Vital Signs and I&Os Vital Signs Date Time Temp Pulse Resp B/P B/P Pulse O2 O2 Flow FiO2 Mean Ox Delivery Rate 04/11 0640 97.7 60 18 106/66 96 Room Air 04/10 2150 97.8 65 18 130/78 96 Room Air 04/10 1310 97.3 59 18 112/70 97 Room Air Intake & Output 04/11 1600 04/11 0800 04/11 0000 04/10 1600 04/10 0800 04/10 0000 Intake Total 50 100 360 120 120 Output Total Balance 50 100 360 120 120 Intake, Oral 50 100 360 120 120 Patient 195 lb 144 lb Weight Weight Bed scale Measurement Method Current Medications: Current Medications Sig/Gilma Start time Last Medication Dose Route Stop Time Status Admin Acetaminophen 650 MG Q6P PRN 04/10 1145 AC 04/10 PO 1648 Acetaminophen 650 MG Q6P PRN 04/07 0600 DC 04/09 PO 1735 Heparin Sodium 5,000 UNIT Q8 04/07 06 AC 04/11 (Porcine) SC 0536 Ketorolac 15 MG Q8P PRN 04/09 1500 AC Tromethamine IV Magnesium Oxide 400 MG BID 04/10 0900 AC 04/11 PO 0825 Morphine Sulfate 2 MG Q4P PRN 04/07 06 AC IV Ondansetron HCl 4 MG Q6P PRN 04/09 1500 AC IV Oxycodone/ 1 TAB Q6P PRN 04/07 06 AC Acetaminophen PO Results Last 48 Hrs of Labs/Mics: Laboratory Tests 04/10/18 0605: Troponin I Cancelled 04/10/18 0505: Anion Gap 13, Estimated GFR > 60, BUN/Creatinine Ratio 16.3, Calcium 9.6, Magnesium 1.8, Troponin I 0.17 *H, CBC w Diff NO MAN DIFF REQ, RBC 4.85, MCV 93.7, MCH 31.6 H, MCHC 33.8, RDW 13.1, MPV 9.3, Gran % 73.6, Lymphocytes % 19.0 L, Monocytes % 6.8, Eosinophils % 0.3, Basophils % 0.3, Absolute Granulocytes 5.8, Absolute Lymphocytes 1.5, Absolute Monocytes 0.5, Absolute Eosinophils 0, Absolute Basophils 0 Assessment/Plan Assessment/Plan Assessment/Plan 1. Recurrent palpitations 2. Recurrent syncope, likely secondary to bradycardia arrhythmia 3. Cervical fracture 4. Reported history of mitral prolapse 5. Frequent pauses and sinus bradycardia with associated lightheadedness. 6. Status post pacemaker placement with malposition of atrial lead Continue telemetry? No
--- NOTE | 2018-04-11 13:55 | Discharge Summary ---
Visit Information Visit Dates Admission Date: 04/07/18 Discharge Date: 04/11/18 Hospital Course Course Attending Physician: Adri Mena MD Primary Care Physician: Amara GREENBERG,Tala [facility] Course: Kameron Lara is a 68-year-old female with a past medical history of mitral valve prolapse who presented to the ED with chief complaint of syncope and racing of heart. The patient was found on the floor by her and denied any jerking movements or signs of seizures. A head and neck CT in the ED showed a right sided C6-C7 articular facet fractures and fracture through the posterior medial minor of C6 just proximal to the spinous process. Patient was evaluated for syncopE and managed for both syncope and cervical fracture 1)SYNCOPE-patient was admitted to telemetry for monitoring and was found to have sinus pauses overnight with a heart rate in the 50s. Cardiology was consulted and the patient was planned for pacemaker implantation. Following, pacemaker implantation patient had pounding sensation in the heart. [employer] was consulted and a pacemaker lead was found to be dislodged into the ventricle. Pacemaker was repositioned immediately following which the patient has been asymptomatic. The patient was observed for 24 hours and was discharged. Patient was advised to follow-up with cardiology 2) CERVICAL FRACTURE-neurosurgery was contacted for cervical fracture evaluation and treatment neurosurgery suggested [place] J cervical collar for 4-6 weeks and was asked to follow-up with Dr. Cevallos in 3 weeks with x-ray Allergies: Uncoded Allergies: ramirez butter (ITCHING, BURNING RASH 04/07/18) Disposition Summary Disposition Principal Diagnosis: Cervical fracture C6-C7 articular facet Sinus pauses Additional Diagnosis: Sinus pause Discharge Disposition: home or self care Discharge Instructions General Discharge Information Code Status: Full Code Patient's Diet: Regular Patient's Activity: As tolerated Follow-Up Instructions/Appts: Follow-up with cardiology within 1 week of discharge Follow-up with neurosurgery in 3 weeks Medications at Discharge Discharge Medications: Continue taking these medications: Cholecalciferol (Vitamin D3) (Vitamin D) (Unknown Strength) TABLET Unknown Dose ORAL DAILY Comments: NOT GIVEN IN HOSPITAL Fluticasone Propionate (Flonase Allergy Relief) 50 MCG/ACTUATION SPRAY.SUSP 1 [place] In the nose as needed for ALLERGIES Comments: NOT GIVEN IN HOSPITAL Copies To: Amara GREENBERG,Tala; Flash Akers; Nevin GREENBERG,W Edy; Marilou Jarquin MD,Martell Ballard
== END 2018-04-11 11:35 | DRG 243 ==
LOC: ERH 23:49 → ERHI 04-07 02:04 → 1NO 04-07 02:04 → ENRESERV 04-07 16:37 → ENTRNSPT 04-07 17:32 → EDTRNSPT 04-07 17:38 → EDTRNSPTSTS 04-07 17:38 → 1NO 04-07 17:52 → CMPTRNSPT 04-07 18:00 → 1NO 04-08 11:31 → ENTRNSPT 04-09 13:51 → EDTRNSPT 04-09 13:54 → EDTRNSPTSTS 04-09 13:54 → CMPTRNSPT 04-09 14:30 → ENTRNSPT 04-10 12:26 → EDTRNSPTSTS 04-10 12:35 → EDTRNSPT 04-10 12:35 → CMPTRNSPT 04-10 12:50 → 1NO 04-10 13:13 → ENPENDDIS 04-11 08:46 → 1NO 04-11 11:35
PROVIDERS: Physical Medicine & Rehabilitation Pain Medicine; Physician Assistant Medical; Student in an Organized Health Care Education/Training Program
PROC: 0JH606Z Insertion of Pacemaker, Dual Chamber into Chest Subcutaneous Tissue and Fascia, Open Approach (ICD-10-PCS; principal; 2018-04-09)
PROC: 02H63JZ Insertion of Pacemaker Lead into Right Atrium, Percutaneous Approach (ICD-10-PCS; 2018-04-09)
PROC: 02HK3JZ Insertion of Pacemaker Lead into Right Ventricle, Percutaneous Approach (ICD-10-PCS; 2018-04-09)
PROC: 02WA3MZ Revision of Cardiac Lead in Heart, Percutaneous Approach (ICD-10-PCS; 2018-04-10)
DX: I49.5 Sick sinus syndrome (principal); S12.500A Unspecified displaced fracture of sixth cervical vertebra, initial encounter for closed fracture; S12.600A Unspecified displaced fracture of seventh cervical vertebra, initial encounter for closed fracture; T82.128A Displacement of other cardiac electronic device, initial encounter; I47.2 Ventricular tachycardia; I34.1 Nonrheumatic mitral (valve) prolapse; M81.0 Age-related osteoporosis without current pathological fracture; Z79.51 Long term (current) use of inhaled steroids; Z87.891 Personal history of nicotine dependence; W18.30XA Fall on same level, unspecified, initial encounter; Y92.009 Unspecified place in unspecified non-institutional (private) residence as the place of occurrence of the external cause
CPT/HCPCS: 1NP; 1NSP; 36415; 71045; 76000; 82436; 93005; 93010; 93306; 96374; C1785; C1898; J0131; J0690; J1644; J1885; J2001; J2405